=== PATIENT | male | born 1945 | race Caucasian/White ===

== ENCOUNTER 2021-06-17 12:50 | Outpatient (CLI) | payer OTHER, MEDICARE, SELFPAY ==
[2021-06-17 13:08] VITALS: BP 137/80; PULSE 87; RESP 18; TEMP 36.7; O2SAT 97
[2021-06-17 13:41] VITALS: BP 136/86; PULSE 88; O2SAT 95
[2021-06-17 14:51] VITALS: BP 148/87; PULSE 85; O2SAT 96
== END 2021-06-17 14:54 | disposition home or self-care (01) ==
PROVIDERS: PCP Internal Medicine; Visit Provider Internal Medicine
DX: U07.1 COVID-19 (principal)
CPT/HCPCS: 96365

== ENCOUNTER 2021-07-09 14:52 | Outpatient (CLI) | payer OTHER, MEDICARE, SELFPAY ==
--- NOTE | 2021-07-09 14:57 | XR_ITS ---
WS: [id number] RIGHT HIP HISTORY: RIGHT HIP PAIN COMPARISON: 03/07/2013 Right hip: Status post total hip arthroplasty. No lucency around the hardware. Hip prosthetic compone nt remains centered within the acetabular component. No asymmetry. Mild osteophytic ridging around the solomon acetabulum. XR/XR hip RT 2-3V wo/w pel* [id number] IMPRESSION: 1. No hip fracture. 2. Status post RIGHT hip arthroplasty. Arthroplasty components appear similarl y positioned as compared to 03/07/2013.
== END 2021-07-09 14:53 | disposition home or self-care (01) ==
PROVIDERS: PCP Internal Medicine; Visit Provider Internal Medicine
DX: M25.551 Pain in right hip (principal); Z96.641 Presence of right artificial hip joint
CPT/HCPCS: 73502

== ENCOUNTER 2022-02-14 09:51 | Emergency (ER) | payer OTHER, MEDICARE, SELFPAY ==
[2022-02-14] VITALS (7 sets, daily range): BP systolic 159–209; BP diastolic 85–141; PULSE 78–89; RESP 15–20; TEMP 36.6; O2SAT 94–96; BMI 34.7
--- NOTE | 2022-02-14 10:18 | PC.NURSE ---
PT PLACED ON CONTINUOUS CARDIAC, BP AND O2 MONITOR.
[2022-02-14] MEDS: lactated ringers 1,000 ML 999 ML IV (10:44)
[2022-02-14] MEDS: ondansetron 2 mg/ML SDV 2 mL 4 MG IVP ×2 (10:44→12:21)
[2022-02-14 10:57] LABS: Basophils % 0.3 %; Eosinophils # 0.2 10^3/uL (0.0-0.8); Eosinophils % 2.2 %; Hematocrit 46.9 % (42.0-52.0); Hemoglobin 14.8 g/dL (11.7-16.6); Lymphocytes # 1.7 10^3/uL (0.8-4.8); Lymphocytes % 19.3 %; Mean Corpuscular HGB Conc 31.6 g/dL (30.0-36.0); Mean Corpuscular Hemoglobin 28.5 pg (28.0-34.0); Mean Corpuscular Volume 90.2 fl (80-94); Mean Platelet Volume 9.6 fL (7.4-10.4); Monocytes # 0.5 10^3/uL (0.2-0.9); Neutrophils # 6.18 10^3/uL (1.8-7.7); Neutrophils % 71.6 %; Nucleated Red Blood Cells % 0 %; Platelet Count 265 10^3/cmm (130-400); Red Cell Distribution Width 14.6 % (12.1-15.1); White Blood Count 8.6 10^3/uL (4.0-10.0)
[2022-02-14 11:05] LABS: Alanine Aminotransferase 20 U/L (0-41); Albumin Level 4.2 g/dL (3.5-5.2); Alkaline Phosphatase 90 IU/L (40-130); Anion Gap 15.6 (5-19); Aspartate Amino Transferase 28 U/L (0-40); Blood Urea Nitrogen 16 mg/dL (8-23); Calcium 9.2 mg/dL (8.5-10.5); Carbon Dioxide 22 mmol/L (22-29); Chloride 98 mmol/L (98-107); Globulin 3.4 g/dL (1.3-4.6); Glucose 171 mg/dL (65-115); Osmolality Calculated 279 mOsm/kg (285-295); Potassium 3.6 mmol/L (3.5-5.1); Sodium 132 mmol/L (136-145); Total Bilirubin 0.7 mg/dL (0.15-1.2); Total Protein 7.6 g/dL (6.6-8.7)
[2022-02-14] MEDS: metoprolol tartrate 1 mg/1 mL SDV 5 mL 2.5 MG IVP (11:08)
[2022-02-14] MEDS: hyDRALAzine 20 mg/mL INJ 1 mL 10 MG IVP (11:08)
--- NOTE | 2022-02-14 11:19 | ECG_ITS ---
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 Measurements Intervals [place] Rate: 83 P: 1 NM: 248 QRS: 58 QRSD: 103 T: 56 QT: 393 QTc: 462 Interpretive Statements SINUS RHYTHM WITH FIRST DEGREE AV BLOCK POSSIBLE INFERIOR MYOCARDIAL INFARCTION , PROBABLY OLD [30 ms Q WAVE IN II/aVF] Compared to ECG 03/11/2016 05:19:25 Myocardial infarct finding now present T-wave abnormality no longer present Electronically Signed On 02-14-2022 11:33:50 CDT by Richard Lopez M.D. [id number]
--- NOTE | 2022-02-14 12:18 | CTR_ITS ---
PROCEDURE INFORMATION: Exam: CT Abdomen And Pelvis With Contrast Exam date and time: 02/14/2022 1:21 PM Age: 77 years old Clinical indication: Abdominal pain; Generalized; Prior surgery; Surgery type: Appy, gb hips; Additional info: Abd pain TECHNIQUE: Imaging protocol: Computed tomography of the abdomen and pelvis with contrast. Radiation optimization: All CT scans at this facility use at least one of these dose optimization techniques: automated exposure control; mA and/or kV adjustment per patient size (includes targeted exams where dose is matched to clinical indication); or iterative reconstruction. Contrast material: VISI 320; Contrast volume: 95 ml; Contrast route: INTRAVENOUS (IV); COMPARISON: CT Abdomen/Pelvis Renal [id number] 05/15/2019 8:57 AM RADIATION DOSE METRICS: Total DLP (mGy-cm): 1836.12 FINDINGS: Heart: Multivessel atherosclerotic disease which involves the coronary arteries. Diaphragm: Small hiatal hernia. Liver: Normal. No mass. Gallbladder and bile ducts: The gallbladder has been removed. Pancreas: There are calcifications in the pancreas consistent with chronic pancreatitis change. Spleen: Normal. No splenomegaly. Adrenal glands: Normal. No mass. Kidneys and ureters: Right kidney is atrophic. Stomach and bowel: There are air-fluid levels in the distal colon suggesting mild nonspecific colitis versus other diarrheal illness. There are multiple colonic diverticula. Associated mucosal thickening and mesenteric inflammatory stranding is present at the junction of the distal descending and sigmoid colon consistent with diverticulitis. No large abscess formation is seen. Appendix: No evidence of appendicitis. Intraperitoneal space: Unremarkable. No free air. No significant fluid collection. Vasculature: Unremarkable. No abdominal aortic aneurysm. Lymph nodes: Unremarkable. No enlarged lymph nodes. Urinary bladder: The bladder is enlarged and distended. The base of the bladder is obscured by artifact from the patient's hip replacements. Bladder measures 16.7 x 14.6 cm in the craniocaudad/transverse dimensions. Reproductive: Prostate region is obscured by artifact. Bones/joints: Patient status post bilateral total hip replacements. Resultant artifact obscures adjacent structures. Soft tissues: Unremarkable. CT/CT abdomen pelvis w con* [id number] IMPRESSION: 1. Findings consistent with acute diverticulitis. 2. The bladder enlarged and distended raising concern for bladder outlet obstruction. The base of the bladder is obscured by artifact from the bilateral total hip replacements. 3. There are air-fluid levels in the distal colon suggesting mild nonspecific colitis versus other diarrheal illness. 4. There are calcifications in the pancreas consistent with chronic pancreatitis change.
[2022-02-14] MEDS: morphine 4 mg/mL SDV 1 mL 6 MG IVP (12:22)
--- NOTE | 2022-02-14 13:03 | ED_ITS ---
HPI - Abdominal Pain General: Chief Complaint: Abdominal Pain Stated Complaint: n/v Time Seen by Provider: 02/14/22 09:52 Source: patient Mode of arrival: ambulatory Limitations: no limitations History of Present Illness: 77-year-old male presents emergency room complaining of upper abdominal pain of 10 that began yesterday morning nausea vomiting and diarrhea no hematochezia melena hematemesis or coffee-ground emesis. Not had any discomfort rating to the neck back or arms. No shortness of breath associated with it. No fever no cough MD elicited complaint: abdominal pain Onset (ago): day(s) (1) Location: Epigastric Severity: mild Quality: cramping Radiation: none Exacerbating factors: eating Relieving factors: nothing Associated Symptoms: Reports anorexia, bloating, change in stool character (Acholic stools), GI cramping, diarrhea, nausea, poor appetite and vomiting; Denies belching, change in bowel habits, chills, coffee ground emesis, constipation, dyspepsia, dysuria, excessive flatus, fever(s), heartburn, hematochezia, hematuria, hematemesis, fecal incontinence, loose stools, melena and syncope Review of Systems Const: Denies: fever(s) or chills ENMT: Denies: throat pain, ear or mastoid pain, nasal discharge or nasal co ngestion Card: Denies: syncope Resp: Denies: dyspnea, productive cough or non-productive cough GI: Reports: abdominal pain, nausea, vomiting, diarrhea, bloating, GI cramping and change in stool character (Acholic stools); Denies: hematemesis, coffee ground emesis, heartburn, constipation, belching, excessive flatus, fecal incontinence, change in bowel habits, hematochezia or melena : Denies: dysuria or hematuria Skin/Breast: Denies: rash or pruritus PFSH ED PFSH: Medical History (Updated 02/14/22 @ 15:09 by Quentin Britton DO) Chronic kidney disease Multifactorial. 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 Father , AT AGE 94-HYPERTENSION CAD (coronary artery disease) Social History Smoking and tobacco status: current every day smoker Alcohol intake: current Alcohol intake frequency: holidays/special occasions only Marital status: Current occupational status: employed History of recent travel: No Current gender identity: Male Physical Exam Const: COMMON NORMALS: no acute distress GENERAL APPEARANCE: cooperative and comfortable ORIENTATION/CONSCIOUSNESS: Yes awake, Yes oriented to person, Yes oriented to place and Yes oriented to time HENMT: COMMON NORMALS: normocephalic, atraumatic and hearing grossly normal bilaterally HEAD & SCALP: normocephalic and atraumatic Neck/C-Spine: COMMON NORMALS: no JVD Resp: COMMON NORMALS: normal respiratory effort, No retractions, No use of accessory muscles and clear to auscultation bilaterally AUSCULTATION: clear to auscultation bilaterally Cardio: COMMON NORMALS: no JVD, regular rate, regular rhythm and No murmurs present (Cardio) RATE: regular rate RHYTHM: regular rhythm GI: COMMON NORMALS: No hepatosplenomegaly present AUSCULTATION: Yes normoactive bowel sounds PALPATION: Yes Tenderness to palpation present (GI) (Epigastric), No Guarding due to palpation present (GI) and Yes No hepatosplenomegaly present Extremity: COMMON NORMALS: normal to inspection, capillary refill normal, no clubbing, cyanosis or edema, no calf tenderness and no pedal edema Neuro: SENSORIUM/ORIENTATION: Yes oriented to person, Yes oriented to place and Yes oriented to time Skin: COMMON NORMALS: no rashes or lesions noted GENERAL SKIN EXAM: no rashes or lesions noted Course Vital Signs: Vital signs: Vital Signs Temperature 97.8 F 02/14/22 09:55 Pulse Rate 78 02/14/22 13:41 Respiratory Rate 18 02/14/22 13:41 Blood Pressure 159/96 02/14/22 13:41 Pulse Oximetry 95 02/14/22 13:41 MDM - Abdominal Pain Medical Decision Making CT shows diverticulitis. Creatinine good he does have some urinary retention but he has self cath in the past. Encourage patient to self cath least once or twice a day. Start on Cipro and Flagyl he also has a mild UTI that should be co vladislav by those antibiotics clear liquid diet for 24 to 48 hours. Advance as tolerated give hydrocodone Zofran to use as needed Medical Records I reviewed the patient's medical records. Lab Data I reviewed the patient's lab results. : 02/14/22 10:13 02/14/22 10:13 Labs/Radiology: Radiology Impressions Abdomen/Pelvis CT 02/14/22 12:18 IMPRESSION: 1. Findings consistent with acute diverticulitis. 2. The bladder enlarged and distended raising concern for bladder outlet obstruction. The base of the bladder is obscured by artifact from the bilateral total hip replacements. 3. There are air-fluid levels in the distal colon suggesting mild nonspecific colitis versus other diarrheal illness. 4. There are calcifications in the pancreas consistent with chronic pancreatitis change. Laboratory Results WBC 8.6 10^3/uL (4.0-10.0) 02/14/22 10:13 RBC 5.20 10^6/uL (4.1-5.3) 02/14/22 10:13 Hgb 14.8 g/dL (11.7-16.6) 02/14/22 10:13 Hct 46.9 % (42.0-52.0) 02/14/22 10:13 MCV 90.2 fl (80-94) 02/14/22 10:13 MCH 28.5 pg (28.0-34.0) 02/14/22 10:13 MCHC 31.6 g/dL (30.0-36.0) 02/14/22 10:13 RDW 14.6 % (12.1-15.1) 02/14/22 10:13 Plt Count 265 10^3/cmm (130-400) 02/14/22 10:13 MPV 9.6 fL (7.4-10.4) 02/14/22 10:13 Neut % (Auto) 71.6 % 02/14/22 10:13 Lymph % (Auto) 19.3 % 02/14/22 10:13 [place] % (Auto) 6.0 % 02/14/22 10:13 Eos % (Auto) 2.2 % 02/14/22 10:13 Baso % (Auto) 0.3 % 02/14/22 10:13 Neut # (Auto) 6.18 10^3/uL (1.8-7.7) 02/14/22 10:13 Lymph # (Auto) 1.7 10^3/uL (0.8-4.8) 02/14/22 10:13 [place] # (Auto) 0.5 10^3/uL (0.2-0.9) 02/14/22 10:13 Eos # (Auto) 0.2 10^3/uL (0.0-0.8) 02/14/22 10:13 Baso # (Auto) 0.0 10^3/uL (0.0-0.1) 02/14/22 10:13 Nucleated RBC % (auto) 0 % 02/14/22 10:13 Nucleated RBCs # 0.0 /100WBC 02/14/22 10:13 Sodium 132 mmol/L (136-145) L 02/14/22 10:13 Potassium 3.6 mmol/L (3.5-5.1) 02/14/22 10:13 Chloride 98 mmol/L (98-107) 02/14/22 10:13 Carbon Dioxide 22 mmol/L (22-29) 02/14/22 10:13 Anion Gap 15.6 (5-19) 02/14/22 10:13 BUN 16 mg/dL (8-23) 02/14/22 10:13 Creatinine 1.3 mg/dL (0.7-1.2) H 02/14/22 10:13 GFR Calculation Not Reportable 02/14/22 10:13 Glucose 171 mg/dL (65-115) H 02/14/22 10:13 Calculated Osmolality 279 mOsm/kg (285-295) L 02/14/22 10:13 Calcium 9.2 mg/dL (8.5-10.5) 02/14/22 10:13 Total Bilirubin 0.7 mg/dL (0.15-1.2) 02/14/22 10:13 AST 28 U/L (0-40) 02/14/22 10:13 ALT 20 U/L (0-41) 02/14/22 10:13 Alkaline Phosphatase 90 IU/L (40-130) 02/14/22 10:13 Total Protein 7.6 g/dL (6.6-8.7) 02/14/22 10:13 Albumin 4.2 g/dL (3.5-5.2) 02/14/22 10:13 Globulin 3.4 g/dL (1.3-4.6) 02/14/22 10:13 Lipase 21 U/L (13-60) 02/14/22 10:13 Urine Color Yellow (Yellow) 02/14/22 12:51 Urine Appearance Hazy (CLEAR) A 02/14/22 12:51 Urine pH 5 (5-7) 02/14/22 12:51 Ur Specific [place] 1.015 (1.005-1.030) 02/14/22 12:51 Urine Protein Neg (Negative) 02/14/22 12:51 Urine Glucose (UA) Norm (Normal) 02/14/22 12:51 Urine Ketones Negative (Negative) 02/14/22 12:51 Urine Blood Trace (Negative) H 02/14/22 12:51 Urine Nitrate Positive (Negative) H 02/14/22 12:51 Urine Bilirubin Neg (Negative) 02/14/22 12:51 Urine Urobilinogen Norm mg/dL (Negative) 02/14/22 12:51 Ur Leukocyte Esterase 2+ (Negative) H 02/14/22 12:51 Urine RBC Rare /hpf (0-2) 02/14/22 12:51 Urine WBC 15-25 /hpf (0-5) H 02/14/22 12:51 Ur Squamous Epith Cells None /hpf (0-5) 02/14/22 12:51 Amorphous Sediment Not Reportable 02/14/22 12:51 Urine Bacteria 2+ /hpf (NONE) H 02/14/22 12:51 Urine Mucus Trace /hpf 02/14/22 12:51 Discharge Plan Discharge Patient Disposition: Home Clinical Impression: Diverticulitis, Urinary retention, Cystitis Condition: Stable Prescriptions: New metronidazole 500 mg tablet 500 mg PO TID Qty: 30 0RF Cipro 500 mg tablet 500 mg PO BID Qty: 20 0RF hydrocodone-acetaminophen 5-325 mg tablet 1 tab PO Q6H PRN (Reason: pain) Qty: 15 0RF ondansetron HCl 4 mg tablet 4 mg PO Q6H PRN (Reason: nausea and vomiting) Qty: 20 0RF No Action duloxetine [Cymbalta] 30 mg capsule,delayed release(DR/EC) 30 mg PO ONCE 0RF clopidogrel [Plavix] 75 mg tablet 75 mg PO ONCE 0RF tamsulosin [Flomax] 0.4 mg capsule 0.4 mg PO ONCE 0RF simvastatin 40 mg tablet 40 mg PO ONCE 0RF pantoprazole [Protonix] 40 mg tablet,delayed release (DR/EC) 40 mg PO ONCE 0RF multivitamin Capsule 1 cap PO QAM 0RF zolpidem 5 mg tablet 5 mg PO ONCE PRN0RF acetaminophen [Tylenol Extra Strength] 500 mg tablet 500 mg PO Q4H 0RF metoprolol succinate 25 mg tablet extended release 24 hr 25 mg PO ONCE 0RF cefuroxime axetil 500 mg tablet 500 mg PO BID Qty: 20 0RF amlodipine 2.5 mg tablet 2.5 mg PO DAILY Qty: 90 0RF Discharge Orders: Discharge ED (Routine); Ordered 02/14/22 Ordered By: Quentin Britton Referrals: Elizabeth Del Rio MD [Primary Care Provider] - Discharge Diet: Clear Liquid Discharge Activity: Resume usual activity Patient Instructions: Opioid Safety Coding Level of Care Code ED Sales Floor Manager for Chg Fwd Exam Comprehensive
[2022-02-14] MEDS: iodixanol 320 mg/mL 100mL Btl IV (13:20)
[2022-02-14 13:23] LABS: Lipase 21 U/L (13-60)
[2022-02-14 13:25] LABS: Add Urine Microscopic? YES; Bacteria Urine 2+ /hpf; Bilirubin Urine Neg (Negative); Blood Urine Trace (Negative); Glucose Urine UA Norm (Normal); Ketones Urine Negative (Negative); Leukocyte Esterase Urine 2+ (Negative); Nitrate Urine Positive (Negative); Protein Urine Neg (Negative); RBC Urine RARE /hpf (0-2); Specific Gravity, Urine 1.015 (1.005-1.030); Urine Appearance Hazy (CLEAR); Urine Color Yellow (Yellow); Urobilinogen Urine Norm (Negative); WBC Urine 15-25 /hpf (0-5); pH Urine 5 (5-7)
[2022-02-14 13:26] LABS: Add Urine Culture? Yes; Mucus Urine TRACE /hpf
[2022-02-14] MEDS: cefTRIAXone 1,000 MG in sodium chloride 0.9% (plus) 50 ML 100 MG IV (13:37)
--- NOTE | 2022-02-14 21:22 | PC.NURSE ---
Per physician order of 6mg of morphine; two 4mg vials were pulled from the Pyxis, 2mg were remaining from the 2nd vial. This RN went to waste medication in pyxis after patient was discharged home from the ED and pt was no longer in pyxis nor was there a discrepancy showing waste was needed. Leonard from Pharmacy was called. This RN was told to contact Endodontic Assistant. Maribel (Endodontic Assistant) called and informed of issue. cell efficiency supervisor stated she would contact Pharmacy. Approx. 15 minuntes later Leonard from Pharmacy arrives in ED, both this RN and Leonard reviewed the pyxis. Pt was added as a temporary patient into the pyxis to document waste of the remaining 2mg of morphine. Waste was witnessed by COLLEEN Abebe. Medical record number and visit number was provided in temporary Patient information so it could be correctly reviewed.
== END 2022-02-14 15:36 | disposition home or self-care (01) ==
PROVIDERS: Emergency Provider Family Medicine; PCP Internal Medicine
DX: K57.32 Diverticulitis of large intestine without perforation or abscess without bleeding (principal); R33.9 Retention of urine, unspecified; N30.90 Cystitis, unspecified without hematuria; Z79.02 Long term (current) use of antithrombotics/antiplatelets; F17.200 Nicotine dependence, unspecified, uncomplicated; N18.9 Chronic kidney disease, unspecified
CPT/HCPCS: 74177; 80053; 81001; 83690; 85025; 87077; 87086; 87186; 93005; 96365; 96375; 96376; 99284; J0360; J0696; J2270; J2405; J3490; Q9967

== ENCOUNTER 2022-06-18 00:21 | Emergency (ER) | payer OTHER, MEDICARE, SELFPAY ==
[2022-06-18 00:28] VITALS: BMI 33.2
[2022-06-18 00:32] VITALS: BP 139/88; PULSE 97; RESP 18; TEMP 36.4; O2SAT 97
--- NOTE | 2022-06-18 00:45 | ECG_ITS ---
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 Measurements Intervals [place] Rate: 96 P: TN: QRS: 65 QRSD: 109 T: 33 QT: 374 QTc: 474 Interpretive Statements Sinus RHYTHM with premature ventricular contractions and a long first-degree AV block PROBABLE INFERIOR MYOCARDIAL INFARCTION , PROBABLY OLD [35 ms Q WAVE IN II/aVF] Compared to ECG 02/14/2022 10:18:53 Myocardial infarct finding still present Electronically Signed On 06-18-2022 14:27:33 CDT by Richard Lopez M.D. [id number]
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
[2022-06-18 01:10] LABS: Basophils # 0.1 10^3/uL (0.0-0.1); Basophils % 0.4 %; Eosinophils # 0.2 10^3/uL (0.0-0.8); Eosinophils % 1.1 %; Hematocrit 48.4 % (42.0-52.0); Hemoglobin 16.3 g/dL (11.7-16.6); Lymphocytes # 1.8 10^3/uL (0.8-4.8); Lymphocytes % 11.4 %; Mean Corpuscular HGB Conc 33.7 g/dL (30.0-36.0); Mean Corpuscular Hemoglobin 31.2 pg (28.0-34.0); Mean Corpuscular Volume 92.7 fl (80-94); Mean Platelet Volume 10.3 fL (7.4-10.4); Monocytes # 0.7 10^3/uL (0.2-0.9); Monocytes % 4.2 %; Neutrophils # 12.82 10^3/uL (1.8-7.7); Neutrophils % 82.4 %; Nucleated Red Blood Cells % 0 %; Platelet Count 241 10^3/cmm (130-400); Red Blood Count 5.22 10^6/uL (4.1-5.3); White Blood Count 15.6 10^3/uL (4.0-10.0)
[2022-06-18 01:19] VITALS: RESP 22; O2SAT 93
[2022-06-18] MEDS: morphine 4 mg/mL SDV 1 mL IVP ×2 (01:19→03:17)
[2022-06-18] MEDS: ondansetron 2 mg/ML SDV 2 mL 4 MG IVP (01:20)
[2022-06-18 01:37] LABS: Alanine Aminotransferase 25 U/L (0-41); Albumin Level 4.7 g/dL (3.5-5.2); Alkaline Phosphatase 103 IU/L (40-130); Blood Urea Nitrogen 13 mg/dL (8-23); Calcium 9.9 mg/dL (8.5-10.5); Carbon Dioxide 21 mmol/L (22-29); Chloride 99 mmol/L (98-107); Globulin 3.2 g/dL (1.3-4.6); Glucose 169 mg/dL (65-115); Lipase 35 U/L (13-60); Osmolality Calculated 290 mOsm/kg (285-295); Sodium 138 mmol/L (136-145); Total Protein 7.9 g/dL (6.6-8.7)
[2022-06-18 01:44] LABS: Anion Gap 22.2 (5-19); Aspartate Amino Transferase 35 U/L (0-40); Potassium 4.2 mmol/L (3.5-5.1)
[2022-06-18] MEDS: iohexol 350 mg/mL 100 mL Btl IV (01:54)
[2022-06-18] MEDS: sodium chloride 0.9% 500 ML 999 ML IV (02:17)
[2022-06-18 03:05] LABS: Add Urine Culture? No; Add Urine Microscopic? YES; Amorphous Sediment Urine 2+ /hpf; Bacteria Urine TRACE /hpf; Bilirubin Urine Neg (Negative); Blood Urine Neg (Negative); Glucose Urine UA Norm (Normal); Ketones Urine 1+ (Negative); Leukocyte Esterase Urine Negative (Negative); Mucus Urine TRACE /hpf; Nitrate Urine Positive (Negative); Protein Urine Neg (Negative); RBC Urine 0-4 /hpf (0-2); Specific Gravity, Urine 1.015 (1.005-1.030); Squamous Epithelial Cell Urine 0-4 /hpf (0-5); Urine Appearance Clear (CLEAR); Urine Color Yellow (Yellow); Urobilinogen Urine Norm (Negative); pH Urine 5 (5-7)
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
[2022-06-18] MEDS: metoclopramide 5 mg/mL SDV 2 mL 10 MG IVP (03:14)
[2022-06-18 03:17] VITALS: RESP 16
[2022-06-18 03:23] VITALS: BP 205/80; PULSE 95; RESP 18; O2SAT 93
[2022-06-18 04:10] VITALS: RESP 18
[2022-06-18] MEDS: oxyCODONE 5 mg IR Tab/Cap PO (04:10)
--- NOTE | 2022-06-18 04:10 | PC.NURSE ---
Pt given oxycodone 5mg po x 1 tablet to go. Given to . Witnessed by COLLEEN Alvarenga.
--- NOTE | 2022-06-19 11:50 | DCPLANNER ---
Addendum entered by Rosana Hernandez 06/25/22 15:19: Patient has a follow up appointment scheduled for 06.23.22 with Maninder Carlos at ortho - patient did attend appointment. Original Note: manager of case management had message to schedule a follow up appointment for patient with ortho. manager of case management sent patients information to the front office staff at ortho. Patients information will be printed and reviewed. Clinic will call patient with appointment information.
== END 2022-06-18 04:12 | disposition home or self-care (01) ==
PROVIDERS: Emergency Medicine; Emergency Provider Physician Assistant; PCP Internal Medicine
DX: S22.080A Wedge compression fracture of T11-T12 vertebra, initial encounter for closed fracture (principal); Z79.02 Long term (current) use of antithrombotics/antiplatelets; Z96.643 Presence of artificial hip joint, bilateral; F17.210 Nicotine dependence, cigarettes, uncomplicated; V89.2XXA Person injured in unspecified motor-vehicle accident, traffic, initial encounter
CPT/HCPCS: 70450; 71045; 74177; 80053; 81001; 83690; 85025; 93005; 96361; 96374; 96375; 96376; 99285; J2270; J2405; J2765; J7040; Q9967

== ENCOUNTER → 2022-06-23 11:20 | Outpatient (BNVA) | payer OTHER, MEDICARE, SELFPAY | PROVIDERS: PCP Internal Medicine; Visit Provider Physician Assistant | DX: S22.080A Wedge compression fracture of T11-T12 vertebra, initial encounter for closed fracture (principal); S32.010A Wedge compression fracture of first lumbar vertebra, initial encounter for closed fracture; X58.XXXA Exposure to other specified factors, initial encounter; M48.061 Spinal stenosis, lumbar region without neurogenic claudication | CPT/HCPCS: 72100; 99203; 99204 ==

== ENCOUNTER 2022-06-25 11:53 | Outpatient (CLI) | payer OTHER, MEDICARE, SELFPAY ==
--- NOTE | 2022-06-25 12:00 | MR_ITS ---
WS: [id number] MRI LUMBAR SPINE NONCONTRAST TECHNIQUE: Sagittal T1, T2 and STIR imaging. Axial T1 and T2 imaging. CLINICAL INFORMATION: S32.010A - Wedge compression fracture of first lumbar nasima... COMPARISON: CT abdomen pelvis June 18, 2022 FINDINGS: Mild lumbar curve. Compression fracture L1 vertebral body with diffuse edema consistent with acute co mpression injury endplate. Fracture cleft along the inferior endplate slightly progressed compared to June 18, 2022 CT abdomen pelvis. Loss of approximately 40% vertebral body height centrally. Mild r etropulsion posterior inferior cortex with mild to moderate central canal stenosis and slight crowdin g of the cauda equina nerve rootlets. No other acute appearing compression fractures. T12-L1: Mild disc bulging with slight effacement of ventral thecal sac. Mild facet arthropathy. Spina l canal and foramen are patent. L1-L2: Mild/moderate central canal stenosis. Crowding of the cauda equina nerve roots. Mild facet art hropathy. Mild LEFT proximal foraminal narrowing. L2-L3: Slight retrolisthesis. Mild annular bulging with moderate central canal stenosis. Impingement traversing L3 nerve roots. Small LEFT subarticular protrusion impinges the traversing LEFT L3 nerve r oot. Mild LEFT and no significant RIGHT foraminal narrowing. Mild facet arthropathy. L3-L4: Mild annular bulging. Impingement traversing L4 nerve roots bilaterally. Moderate central [place] l stenosis. Moderate facet arthropathy. Eccentric disc bulging with mild bilateral foraminal narrowin g. L4-L5: Mild annular bulging. Slight effacement of ventral thecal sac. Impingement traversing RIGHT gr eater than LEFT L5 nerve roots. Mild RIGHT foraminal narrowing. Mild facet arthropathy. L5-S1: Mild disc bulging with slight effacement of ventral thecal sac. Slight retrolisthesis. Impinge ment traversing S1 nerve roots bilaterally. Moderate facet arthropathy ligamentum flavum hypertrophy. Osteophytic ridging with moderate bilateral foraminal narrowing. Atrophic RIGHT kidney.Urine distended bladder. MR/MR lumbar spine wo con* [id number] IMPRESSION: 1. Acute compression fracture L1 vertebral body with compression of the inferi or endplate measuring approximately 40%. Mild retropulsion of the posterior inf erior cortex with mild to moderate central canal stenosis and mild crowding of the cauda equina nerve rootlets. 2. No other acute compression fractures. 3. Moderate central canal stenosis L2-L3 L3-L4 due to disc bulging with facet arthropathy and ligamentum flavum hypertrophy. 4. Small LEFT subarticular protrusion impinges the traversing LEFT L3 nerve ro ot. 5. Impingement RIGHT subarticular recess L4-L5. 6. Impingement traversing S1 nerve roots L5-S1. Moderate bilateral L5-S1 kevin inal narrowing.
== END 2022-06-25 11:54 | disposition home or self-care (01) ==
LOC: RAD 11:56
PROVIDERS: PCP Internal Medicine; Visit Provider Physician Assistant
DX: S32.010A Wedge compression fracture of first lumbar vertebra, initial encounter for closed fracture (principal); M48.061 Spinal stenosis, lumbar region without neurogenic claudication; M51.26 Other intervertebral disc displacement, lumbar region; X58.XXXA Exposure to other specified factors, initial encounter; V89.2XXA Person injured in unspecified motor-vehicle accident, traffic, initial encounter
CPT/HCPCS: 72148; 99214

== ENCOUNTER 2022-06-26 05:37 | Day surgery (SDC) | payer OTHER, MEDICARE, SELFPAY ==
[2022-06-26] VITALS (7 sets, daily range): BP systolic 117–165; BP diastolic 71–103; PULSE 75–100; RESP 14–20; TEMP 36.2–36.6; O2SAT 95–99; BMI 33.2
--- NOTE | 2022-06-26 | SCC_ITS ---
Procedure: 1. L1 Kyphoplasty 81.4 seconds of fluoroscopic guidance, for a cumulative dose of 64.41 mGy, was provided to Dr. Bennett by the radiology department. C-arm images of the lumbar spine were saved for the patient's permanent record. [facility]
--- NOTE | 2022-06-26 05:50 | SC_ITS ---
WS: [id number] C-arm FL for Kyphoplasty REASON FOR EXAM: L1 kyphoplasty FINDINGS: Injection of radiopaque methylmethacrylate into the central and anterior L4 vertebral body from the l eft pedicle approach. There is some extravasation of methylmethacrylate into the paravertebral soft t issues bilaterally. The injected methylmethacrylate fills the fracture line. SC/C-arm FL for Kyphoplasty IMPRESSION: L1 vertebral plasty as above.
--- NOTE | 2022-06-26 06:31 | W.PM.OPSUD ---
Surgery/Procedure H&P Update DATE OF PROCEDURE: June 26, 2022 DATE H&P PERFORMED: 06/25/22 H&P UPDATE INFORMATION: I have reviewed H&P completed within last 30 days, I have examined patient prior to procedure and No changes to prior documentation PREOP DIAGNOSIS: Traumatic L1 compression fracture PLANNED PROCEDURE: Operation Date: 06/26/22 07:00 Proposed Procedures p Kyphoplasty L1(Not Applicable) - Daniel Bennett, DO
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
[2022-06-26] MEDS: sodium chloride 0.9% 1,000 ML 30 ML IV (06:43)
[2022-06-26] MEDS: ceFAZolin 2,000 MG in sodium chloride 0.9% (plus) 50 ML 100 MG IV (07:00)
[2022-06-26] MEDS: iohexol 300 mg/mL 50 mL Btl (OR ONLY) XX (07:30)
--- NOTE | 2022-06-26 08:15 | P.OP_ITS ---
Operative Report Date of procedure: June 26, 2022 Pre-op diagnosis: Preop Diagnosis Traumatic L1 osteoporotic wedge compression fracture Post-op diagnosis: same Procedure done: 1. L1 Kyphoplasty Surgeon: Daniel Bennett Estimated blood loss (mL): 5 Procedure: 1. L1 Kyphoplasty Patient was brought to the operative suite after undergoing anesthesia patient was placed in prone position. Biplanar fluoroscopy was brought in. AP lateral fluoroscopy was used to identify the L1 level. All areas impingement well- padded. Patient was prepped and draped in sterile fashion. Skin incision was made at the superior lateral aspect of the L1 pedicle on the left side. Skin incision made. The Jamshidi needle was inserted into the L1 pedicle. A drill was then inserted to the center position of the vertebral body anteriorly. Then the balloon was inflated. And then cement was placed into the void that was created by the balloon. This helped to stabilize the fracture. AP lateral fluoroscopy ensured that the fracture the cement were all in good position. Wounds irrigated closed with nylon suture.
[2022-06-26] MEDS: HYDROcodone-acetaminophen 5-325 mg Tablet 1 TAB PO (08:53)
--- NOTE | 2022-06-26 14:16 | ANE.PACU2 ---
Inpatient post-anesthesia follow up: Airway intact: Yes Vital signs: Temperature 97.3 F Pulse Rate 97 Respiratory Rate 18 Blood Pressure 117/73 Pulse Oximetry 95 Oxygen Delivery Me thod Room Air Oxygen Flow Rate 6 Fraction of Inspir ed Oxygen Hydration adequate: Yes Nausea and vomiting: No Pain level: 1 Mental status: Baseline
== END 2022-06-26 09:10 | disposition home or self-care (01) ==
PROVIDERS: PCP Internal Medicine; Visit Provider Orthopaedic Surgery
PROC: (CPT 22514; principal; 2022-06-26 07:00)
DX: S32.010A Wedge compression fracture of first lumbar vertebra, initial encounter for closed fracture (principal); X58.XXXA Exposure to other specified factors, initial encounter; I25.10 Atherosclerotic heart disease of native coronary artery without angina pectoris; Z95.5 Presence of coronary angioplasty implant and graft; Z79.02 Long term (current) use of antithrombotics/antiplatelets; K21.9 Gastro-esophageal reflux disease without esophagitis; E78.5 Hyperlipidemia, unspecified; I12.9 Hypertensive chronic kidney disease with stage 1 through stage 4 chronic kidney disease, or unspecified chronic kidney disease; N18.9 Chronic kidney disease, unspecified
CPT/HCPCS: 22514; 76000; J0330; J2370; J2704; J3010; J3490; J7030; P9041

== ENCOUNTER → 2022-07-07 08:48 | Outpatient (BNVA) | payer OTHER, MEDICARE, SELFPAY | PROVIDERS: PCP Internal Medicine; Visit Provider Orthopaedic Surgery | DX: S32.010D Wedge compression fracture of first lumbar vertebra, subsequent encounter for fracture with routine healing (principal); M25.552 Pain in left hip; X58.XXXD Exposure to other specified factors, subsequent encounter; Z96.643 Presence of artificial hip joint, bilateral | CPT/HCPCS: 72100; 73502; 99024 ==

== ENCOUNTER 2022-07-10 11:13 | Outpatient (CLI) | payer OTHER, MEDICARE, SELFPAY ==
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
== END 2022-07-10 11:14 | disposition home or self-care (01) ==
PROVIDERS: PCP Internal Medicine; Visit Provider Orthopaedic Surgery
DX: M25.552 Pain in left hip (principal); V89.2XXA Person injured in unspecified motor-vehicle accident, traffic, initial encounter
CPT/HCPCS: 73700

== ENCOUNTER → 2022-07-29 09:57 | Outpatient (BNVA) | payer MEDICARE, OTHER, SELFPAY | PROVIDERS: PCP Internal Medicine; Visit Provider Anesthesiology Pain Medicine | DX: M54.50 Low back pain, unspecified (principal); M79.604 Pain in right leg; M79.605 Pain in left leg; F17.290 Nicotine dependence, other tobacco product, uncomplicated | CPT/HCPCS: 99204; 99205 ==

== ENCOUNTER 2022-08-18 10:54 | Outpatient (RCR) | payer MEDICARE, OTHER, SELFPAY | END 2022-09-14 23:59 | disposition home or self-care (01) | LOC: SPT 10:54 | PROVIDERS: PCP Internal Medicine; Visit Provider Anesthesiology Pain Medicine | DX: M54.50 Low back pain, unspecified (principal); G89.29 Other chronic pain | CPT/HCPCS: 97110; 97162 ==

== ENCOUNTER 2025-11-11 18:43 | Inpatient (IN) | payer MEDICARE, OTHER, SELFPAY ==
[2025-11-11] VITALS (18 sets, daily range): BP systolic 158–195; BP diastolic 94–112; PULSE 76; RESP 22; TEMP 35.6; O2SAT 81–100; BMI 29.0
--- OUTSIDE RECORDS SUMMARY | 2025-11-11 18:48 | XMS_ITS | Encounter Summary ---
Author Organization [facility], [facility] Address [address] [place] [address] Phone Care Team Providers Care Auto Body Repairman Name Role Phone Elizabeth Del Rio MD Primary Care Provider [phone] Encounter Details Date Type Department Care Team (Late st Contact Info) Description 05/12/2019 Orders Only [facility] [address] [place] [address] Chronic kidney disease, stage 3 (moderate); Hypertension Social History Tobacco Use Types Packs/Day Years Used Date Smoking Tobacco: Never Assessed Sex and Gender Information Value Date Recorded Sex Assigned at Not on file Legal Sex Male 12:33 PM EDT Gender Identity Not on file Sexual Orientation Not on file documented as of this encounter Plan of Treatment Not on file documented as of this encounter Visit Diagnoses Diagnosis Chronic kidney disease, stage 3 (moderate) Hypertension documented in this encounter Care Teams Auto Body Repairman Relationship Specialty Start Date End Date Elizabeth Del Rio MD [address] [place] [address] PCP - General Internal Medicine 06/16/19 documented as of this encounter
--- OUTSIDE RECORDS SUMMARY | 2025-11-11 18:48 | XMS_ITS | Clinical Summary ---
Author Organization [facility] Facility Address [address] [address] Care Team Providers Care Restaurant Line Server Name Role Phone Elizabeth Del Rio MD Primary Care Provider [phone] Allergies No known active allergies Medications pantoprazole (PROTONIX) 40 MG EC tablet Take 40 mg by mouth 1 (one) time each day Do not crush, chew, or split. Active DULoxetine (CYMBALTA) [address] capsule Take 30 mg by mouth 1 (one) time each day Do not crush or chew. Active clopidogrel (PLAVIX) 75 MG tablet Take 75 mg by mouth 1 (one) time each day Active metoprolol succinate XL (TOPROL-XL) 25 MG 24 hr tablet Take 50 mg by mouth 1 (one) time each day Do not crush or chew. Active tamsulosin (FLOMAX) 0.4 MG 24 hr capsule Take 0.8 mg by mouth 1 (one) time each day Active amLODIPine (NORVASC) 2.5 MG tablet Take 10 mg by mouth 1 (one) time each day Active Multiple Vitamin (multivitamin) tablet Take 1 tablet by mouth 1 (one) time each day Active acetaminophen (TYLENOL) 500 MG tablet Take by mouth every 6 (six) hours if needed for mild pain Active hydrOXYzine (VISTARIL) 50 MG capsule Take 50 mg by mouth Prn ONLY 09/15/2023 Active ezetimibe (ZETIA) 10 MG tablet Take 10 mg by mouth 1 (one) time each day Active Melatonin 10 MG capsule Take by mouth Active Active Problems Problem Noted Date Diagnosed Date Vitamin D deficiency 08/26/2022 Stage 3b chronic kidney disease 10/22/2020 Overview (11/18/2020): Update for Diagnosis Load Essential (primary) hypertension 10/22/2020 Retention of urine 10/22/2020 Family History Medical History Relation Comments Heart disease Father Hypertension Father Cancer Mother Heart disease Mother Hypertension Mother Heart disease Sibling Hypertension Sibling Relation Status Comments Father Mother Sibling Social History Tobacco Use Types Packs/Day Years Used Date Smoking Tobacco: Some Days Cigars Smokeless Tobacco: Never Tobacco Cessation:Ready to Q uit: Not Asked; Counseling Given: Not Answered Alcohol Use Standard Drinks/Week Comments Yes 0 (1 standard drink = 0.6 oz pur e alcohol) Sex and Gender Information Value Date Recorded Sex Assigned at Not on file Legal Sex Male 12:33 PM EDT Gender Identity Not on file Sexual Orientation Not on file Last Filed Vital Signs Vital Sign Reading Time Taken Comments Blood Pressure 142/80 12/12/2024 2:27 PM USED CAR SALES MANAGER Pulse 90 12/12/2024 2:27 PM USED CAR SALES MANAGER Temperature 36.2 C (97.1 F) 10/22/2020 9:09 AM USED CAR SALES MANAGER Respiratory Rate - - Oxygen Saturation 98% 12/12/2024 2:27 PM USED CAR SALES MANAGER Inhaled Oxygen Concentration - - Weight 87.3 kg (192 lb 6.4 oz) 12/12/2024 2:27 P M USED CAR SALES MANAGER Height 177.8 cm (5' 10 ) 12/12/2024 2:27 PM USED CAR SALES MANAGER Body Mass Index 27.61 12/12/2024 2:27 PM USED CAR SALES MANAGER Plan of Treatment Health Maintenance Due Date Last Done Comments Pneumococcal Vaccine: 50+ Ye ars (1 of 2 - PCV) 01/20/1964 Influenza Vaccine (#1) 2025 Hepatitis B Vaccine Aged Out No longe r eligible based on patient's age to complete this topic Insurance Medicare Care Teams Restaurant Line Server Relationship Specialty Start Date End Date Elizabeth Del Rio MD [address] [place] [address] PCP - General Internal Medicine 06/16/19
--- OUTSIDE RECORDS SUMMARY | 2025-11-11 18:48 | XMS_ITS | Encounter Summary ---
Author Organization [facility], [facility] Address [address] [place] [address] Phone Care Team Providers Care Workplace Trainer And Assessor Name Role Phone Elizabeth Del Rio MD Primary Care Provider [phone] Encounter Details Date Type Department Care Team (Late st Contact Info) Description 11/13/2019 Orders Only [facility] [address] [place] [address] Sacha Castañeda MD Chronic kidney disease stage 3 (HCC) Social History Tobacco Use Types Packs/Day Years Used Date Smoking Tobacco: Some Days Cigarettes Cigars Smokeless Tobacco: Never Alcohol Use Standard Drinks/Week Comments Yes 0 [...] this encounter Visit Diagnoses Diagnosis Chronic kidney disease stage 3 (HCC) documented in this encounter Care Teams Workplace Trainer And Assessor Relationship Specialty Start Date End Date Elizabeth Del Rio MD [address] [place] [address] PCP - General Internal Medicine 06/16/19 documented as of this encounter
[2025-11-11 19:01] LABS: Hematocrit 52.7 % (37-53); Hemoglobin 18.20 g/dL (11.27-16.99); Mean Corpuscular HGB Conc 34.5 g/dL (30-55); Mean Corpuscular Hemoglobin 34.6 pg (27-33); Mean Corpuscular Volume 100.2 fl (82-101); Nucleated Red Blood Cells % 0 %; Platelet Count 245 10^3/cmm (157-399); Red Blood Count 5.26 10^6/uL (3.85-5.65); White Blood Count 13.95 10^3/uL (3.29-11.43)
--- NOTE | 2025-11-11 19:16 | ECG_ITS ---
[employer] Test Date: 2025-11-11 Pat Name: Bartolo Guzmán Department: Room: Gender: Male Clinical Sales Consultant: : 1945 Requested By: Lexy Beal Order Number: [id number] Reading MD: RICHY BUCHANAN Measurements Intervals [place] Rate: 76 P: 93 [place]: 297 QRS: -77 QRSD: 120 T: 85 QT: 416 QTc: 470 Interpretive Statements SINUS RHYTHM WITH SINUS ARRHYTHMIA WITH FIRST DEGREE AV BLOCK RIGHT BUNDLE BRANCH BLOCK [120+ ms QRS DURATION, UPRIGHT V1, 40+ ms S IN I/aVL/V4/V5/V6] POSSIBLE ANTERIOR MYOCARDIAL INFARCTION , PROBABLY OLD [30 ms Q WAVE IN V3/V4, OR R < 0.2 mV IN V4] INFERIOR MYOCARDIAL INFARCTION , OF INDETERMINATE AGE [40+ ms Q WAVE AND/OR ST/T ABNORMALITY IN II/aVF] Compared to ECG 06/18/2022 00:53:30 First degree AV block now present Right bundle-branch block now present Ventricular premature complex(es) no longer present Myocardial infarct finding still present Electronically Signed On 11-11-2025 22:50:05 SHAFTING CLEANER by RICHY BUCHANAN [email or web address] [id number]
[2025-11-11 19:21] LABS: Troponin(5th) Baseline 18 ng/L (0-15)
[2025-11-11 19:31] LABS: Lactic Sepsis W/Reflex 6.4 mmol/L (0.5-2.2)
[2025-11-11 19:36] LABS: Alanine Aminotransferase 53 U/L (0-41); Albumin Level 4.9 g/dL (3.5-5.2); Alkaline Phosphatase 130 U/L (40-130); Anion Gap 29.9 (5-19); Aspartate Amino Transferase 81 U/L (0-40); Blood Urea Nitrogen 15 mg/dL (8-23); Calcium 10.5 mg/dL (8.5-10.5); Carbon Dioxide 20 mmol/L (22-29); Chloride 95 mmol/L (98-107); Globulin 2.9 g/dL (1.3-4.6); Glucose 147 mg/dL (65-115); Osmolality Calculated 296 mOsm/kg (285-295); Potassium 3.9 mmol/L (3.5-5.1); Sodium 141 mmol/L (136-145); Total Protein 7.8 g/dL (6.6-8.7)
[2025-11-11 19:42] LABS: Respiratory Syncytial Virus Ce NEGATIVE (Negative); SARS-CoV-2 PCR NEGATIVE (Negative)
--- NOTE | 2025-11-11 19:43 | CTR_ITS ---
PROCEDURE INFORMATION: Exam: CTA Abdomen and Pelvis With Contrast Exam date and time: 11/11/2025 8:29 PM Age: 80 years old Clinical indication: Other: Hematemesis; Abdominal pain; Generalized; Prior surgery; Surgery date: 6+ months; Surgery type: Gb. Turp. Appy. Vasectomy. Bilat leonid. Kyphoplasty. Diffuse abd pain with hematemsis; Additional info: N/v/abd pain, lactic 6.4 TECHNIQUE: Imaging protocol: Computed tomographic angiography of the abdomen and pelvis with contrast. Exam focused on the arteries. 3D rendering (Not supervised by radiologist): MIP and/or 3D reconstructed images were created by the technologist. Radiation optimization: All CT scans at this facility use at least one of these dose optimization techniques: automated exposure control; mA and/or kV adjustment per patient size (includes targeted exams where dose is matched to clinical indication); or iterative reconstruction. Contrast material: OMNI 350; Contrast volume: 100 ml; Contrast route: INTRAVENOUS (IV); COMPARISON: CT abdomen pelvis w con* [id number] 06/18/2022 1:41 AM RADIATION DOSE METRICS: Total DLP (mGy-cm): 1452.46 FINDINGS: Diaphragm: Small hiatal hernia. Aorta: No aortic aneurysm. No aortic dissection. Mild atherosclerosis. Celiac and mesenteric arteries: No occlusion or significant stenosis. Renal arteries: No occlusion or significant stenosis. Right iliac arteries: No occlusion or significant stenosis. Left iliac arteries: No occlusion or significant stenosis. Liver: No mass. Gallbladder and biliary ducts: The gallbladder is surgically absent. Pancreas: Unremarkable. No mass. No ductal dilation. Spleen: Unremarkable. No splenomegaly. Adrenal glands: Unremarkable. No mass. Kidneys and ureters: Right renal atrophy. Stomach and bowel: Colonic diverticulosis. Distal colonic anastomotic changes. Appendix: No evidence of appendicitis. Intraperitoneal space: Unremarkable. No free air. No significant fluid collection. Lymph nodes: Unremarkable. No enlarged lymph nodes. Urinary bladder: The urinary bladder is distended. Reproductive: Mild prostatomegaly. Bones/joints: Degenerative visualized spine changes and vertebral augmentation changes at L1. Total hip arthroplasty changes. Soft tissues: Small fat containing left-sided inguinal hernia. CT/CT angio abdomen pelvis [id number] IMPRESSION: 1. No areas of gross contrast extravasation to suggest an acute GI bleed at this time. 2. Mild abdominal aorta atherosclerosis without evidence of aneurysm or dissection. 3. Additional incidental and chronic findings as above.
--- NOTE | 2025-11-11 19:43 | W.ED.GENADLT ---
HPI - General Adult General: Chief complaint: General Medical Stated complaint: n/v History of Present Illness: Patient is an 80-year-old male with a history of high blood pressure, CKD and obstructive uropathy secondary to neurogenic bladder, high cholesterol presents with a chief complaint of upper abdomen pain, nausea, vomiting for 1 day. Patient states his upper abdomen hurts from vomiting so much. Patient denies fever at home. He states that he is not having chest pain today. He does not feel short of breath and has not had a cough. Patient does not feel dizzy or lightheaded. He has had nausea and vomiting today but normal bowel movement this morning. Patient denies blood in stool. Patient states that he has been going more frequently but has not urinated much because he accidentally threw away his Flomax 4 days ago. No sick contacts. He feels much better after dose of Phenergan. Related Data Home Medications ?Medication ?Instructions ?Recorded ?Confirmed acetaminophen 500 mg tablet 500 mg PO Q4H 11/16/19 07/29/22 (Tylenol Extra Strength) clopidogrel 75 mg tablet (Plavix) 75 mg PO ONCE 11/16/19 07/29/22 duloxetine 30 mg capsule,delayed 30 mg PO ONCE 11/16/19 07/29/22 release (Cymbalta) multivitamin 1 cap PO QAM 11/16/19 07/29/22 pantoprazole 40 mg tablet,delayed 40 mg PO ONCE 11/16/19 07/29/22 release (Protonix) simvastatin 40 mg tablet 40 mg PO ONCE 11/16/19 07/29/22 tamsulosin 0.4 mg capsule (Flomax) 0.4 mg PO ONCE 11/16/19 07/29/22 metoprolol succinate 25 mg 25 mg PO ONCE 05/16/20 07/29/22 tablet,extended release 24 hr baclofen 10 mg tablet 10 mg PO BID 07/29/22 07/29/22 Previous Rx's ?Medication ?Instructions ?Recorded amlodipine 2.5 mg tablet 2.5 mg PO DAILY #90 tabs 03/24/21 metronidazole 500 mg tablet 500 mg PO TID #30 tabs 02/14/22 ondansetron HCl 4 mg tablet 4 mg PO Q6H PRN nausea and 02/14/22 vomiting #20 tabs TLSO brace #1 ea 06/23/22 prednisone 20 mg tablet 20 mg PO DAILY #15 tabs 07/17/22 tramadol 50 mg tablet 50 mg PO Q4H PRN pain 7 days #30 07/21/22 tabs Allergies Allergy/AdvReac Type Severity Reaction Status Date / Time No Known Allergies Allergy Verified 07/29/22 10:09 [facility] PFSH: Medical History (Updated 11/11/25 @ 21:52 by Lexy Beal MD) Chronic kidney disease Multifactorial. Obstructive uropathy component secondary to neurogenic bladder Hydronephrosis Secondary to chronic urinary retention Urinary retention 2000 cc with no sensation of fullness at diagnosis 2018 Surgical History Status post tonsillectomy and adenoidectomy Status post vasectomy Status post appendectomy Status post bilateral hip replacements Status post transurethral resection of prostate Status post cholecystectomy Family History Mother , AT AGE 65-ND No problems noted. Father , AT AGE 94-HYPERTENSION CAD (coronary artery disease) Social History Smoking and tobacco/nicotine status: current some day tobacco/nicotine user (cigars) Alcohol intake: current Alcohol intake frequency: holidays/special occasions only Marital status: Current occupational status: employed Current gender identity: Male Physical Exam Narrative: EXAM NARRATIVE: Vital signs were reviewed. Patient is alert and oriented and answering orientation questions readily. Patient is breathing comfortably, no increased WOB or accessory muscle use. SpO2 is above 95% on RA. Patient has clear lungs b/l, no rhonchi, wheezing or crackles. No hypotension or tachycardia. Abdomen is soft, nondistended and nontender. Patient is moving all extremities, no deformity or gross injury. No lower extremity edema or asymmetry. Course Vital Signs: Vital signs: Vital Signs Temperature 96.1 F L 11/11/25 18:55 Pulse Rate 76 11/11/25 18:55 Respiratory Rate 22 H 11/11/25 18:55 Blood Pressure 181/103 11/11/25 21:30 Pulse Oximetry 93 11/11/25 21:30 Oxygen Delivery Me thod Room Air 11/11/25 18:55 [facility] - General Adult Medical Decision Making Patient is an 80-year-old male with a past medical history of high blood pressure, CKD, neurogenic bladder presents with a chief complaint of upper abdomen pain, nausea, vomiting and not having his tamsulosin for 4 days. No sick contacts. Differential diagnosis includes, but is not limited to, pancreatitis, gastroenteritis, urinary tract infection, pyelonephritis, nephrolithiasis, obstructive uropathy, SBO, diverticulitis, mesenteric ischemia, ACS, other. On initial exam, patient is hemodynamically stable and nontoxic appearing. Patient was evaluated with CBC, CMP, lipase, UA, troponin, EKG and CT abd/pelvis. Patient was treated w/IV fluids. Patient has an elevated WBC of 14, elevated H/H (could be due to hemoconcentration due to n/v). Cr is at baseline but AG is 30. Normal potassium/sodium. Lactic acid is 6.4; blood cultures added. Negative for flu/covid/rsv. Patient's troponin is mildly elevated, no chest pain at this time. Patient has a negative delta troponin. On reassessment, patient again complains of abdominal pain, was treated with IV morphine and Zofran. CT scan of the abdomen shows: IMPRESSION: 1. No areas of gross contrast extravasation to suggest an acute GI bleed at this time. 2. Mild abdominal aorta atherosclerosis without evidence of aneurysm or dissection. 3. Additional incidental and chronic findings as above. FC placed, patient given flomax that he has been out of. Additionally, he was treated w/IV labetalol for HTN. Could be that metabolic acidosis is 2/2 to fluid losses and dehydration; will admit for further treatment and obsevation. Lab Data 11/11/25 18:30 11/11/25 18:30 Radiology Impressions Abdomen/Pelvis CTA 11/11/25 19:43 IMPRESSION: 1. No areas of gross contrast extravasation to suggest an acute GI bleed at this time. 2. Mild abdominal aorta atherosclerosis without evidence of aneurysm or dissection. 3. Additional incidental and chronic findings as above. Laboratory Results WBC 13.95 10^3/uL (3.29-11.43) H 11/11/25 18:30 RBC 5.26 10^6/uL (3.85-5.65) 11/11/25 18:30 Hgb 18.20 g/dL (11.27-16.99) H 11/11/25 18:30 Hct 52.7 % (37-53) 11/11/25 18:30 MCV 100.2 fl (82-101) 11/11/25 18:30 MCH 34.6 pg (27-33) H 11/11/25 18:30 MCHC 34.5 g/dL (30-55) 11/11/25 18:30 RDW 12.5 % (12.1-15.1) 11/11/25 18:30 Plt Count 245 10^3/cmm (157-399) 11/11/25 18:30 MPV 10.6 fL (7.4-10.4) H 11/11/25 18:30 Neut % (Auto) 68.8 % 11/11/25 18:30 Lymph % (Auto) 24.2 % 11/11/25 18:30 [place] % (Auto) 5.7 % 11/11/25 18:30 Eos % (Auto) 0.4 % 11/11/25 18: Baso % (Auto) 0.6 % 11/11/25 18:30 Neut # (Auto) 9.61 10^3/uL (1.8-7.7) H 11/11/25 18:30 Lymph # (Auto) 3.4 10^3/uL (0.8-4.8) 11/11/25 18:30 [place] # (Auto) 0.8 10^3/uL (0.2-0.9) 11/11/25 18:30 Eos # (Auto) 0.1 10^3/uL (0.0-0.8) 11/11/25 18:30 Baso # (Auto) 0.1 10^3/uL (0.0-0.1) 11/11/25 18:30 Nucleated RBC % (auto) 0 % 11/11/25 18:30 Nucleated RBCs # 0.0 /100WBC 11/11/25 18:30 Sodium 141 mmol/L (136-145) 11/11/25 18:30 Potassium 3.9 mmol/L (3.5-5.1) 11/11/25 18:30 Chloride 95 mmol/L (98-107) L 11/11/25 18:30 Carbon Dioxide 20 mmol/L (22-29) L 11/11/25 18:30 Anion Gap 29.9 (5-19) H 11/11/25 18:30 BUN 15 mg/dL (8-23) 11/11/25 18:30 Creatinine 1.3 mg/dL (0.7-1.2) H 11/11/25 18:30 GFR Calculation Not Reportable 11/11/25 18:30 Glucose 147 mg/dL (65-115) H 11/11/25 18:30 Calculated Osmolality 296 mOsm/kg (285-295) H 11/11/25 18:30 Lactic Acid 6.4 mmol/L (0.5-2.2) H* 11/11/25 18:30 Calcium 10.5 mg/dL (8.5-10.5) 11/11/25 18:30 Total Bilirubin 1.2 mg/dL (0.15-1.2) 11/11/25 18:30 AST 81 U/L (0-40) H 11/11/25 18:30 ALT 53 U/L (0-41) H 11/11/25 18:30 Alkaline Phosphatase 130 U/L (40-130) 11/11/25 18:30 Troponin T Baseline 18 ng/L (0-15) H 11/11/25 18:30 Troponin T 60 Minute 15.83 ng/L (0-15) H 11/11/25 19:27 Delta Troponin T -2.17 ABS# (0-10) L 11/11/25 19:27 Total Protein 7.8 g/dL (6.6-8.7) 11/11/25 18:30 Albumin 4.9 g/dL (3.5-5.2) 11/11/25 18:30 Globulin 2.9 g/dL (1.3-4.6) 11/11/25 18:30 Amorphous Sediment Not Reportable 11/11/25 21:11 Influenza A (PCR) Negative (Negative) 11/11/25 19:02 Influenza Type B (PCR) Negative (Negative) 11/11/25 19:02 RSV (PCR) Negative (Negative) 11/11/25 19:02 SARS-CoV-2 (PCR) Negative (Negative) 11/11/25 19:02 All radiology interpretation(s) finalized by discharge EKG Data EKG 1: Interpretation: Normal sinus rhythm with a heart rate of 76, left axis deviation, right bundle branch block, no STEMI. There are Q waves in II, III and aVF, appear new in II/aF and new TWI in aVL. EKG changed from previous. Computer generated interpretation: Abdomen/Pelvis CTA 11/11/25 19:43 IMPRESSION: 1. No areas of gross contrast extravasation to suggest an acute GI bleed at this time. 2. Mild abdominal aorta atherosclerosis without evidence of aneurysm or dissection. 3. Additional incidental and chronic findings as above. Discharge Plan Discharge Patient Disposition: Admitted As Inpatient Clinical Impression: Nausea & vomiting, Acute dehydration, Neurogenic bladder, High blood pressure Condition: Stable Coding Level of Care Code ED Die Setter for Aditi Patterson
--- NOTE | 2025-11-11 19:54 | ECG_ITS ---
[employer] Test Date: 2025-11-11 Pat Name: Bartolo Guzmán Department: Room: Gender: Male Wood Machine Carver: : 1945 Requested By: Lexy Beal Order Number: [id number] Reading MD: RICHY BUCHANAN Measurements Intervals [place] Rate: 86 P: 92 UT: 292 QRS: -77 QRSD: 126 T: 84 QT: 419 QTc: 503 Interpretive Statements SINUS RHYTHM WITH FIRST DEGREE AV BLOCK WITH OCCASIONAL ECTOPIC PREMATURE COMPLEXES RIGHT BUNDLE BRANCH BLOCK [120+ ms QRS DURATION, UPRIGHT V1, 40+ ms S IN I/aVL/V4/V5/V6] POSSIBLE ANTERIOR MYOCARDIAL INFARCTION , PROBABLY OLD [30 ms Q WAVE IN V3/V4, OR R < 0.2 mV IN V4] INFERIOR MYOCARDIAL INFARCTION , OF INDETERMINATE AGE [40+ ms Q WAVE AND/OR ST/T ABNORMALITY IN II/aVF] Compared to ECG 11/11/2025 19:16:27 Sinus arrhythmia no longer present Myocardial infarct finding still present Electronically Signed On 11-11-2025 23:17:04 ACTIVITIES DIRECTOR by RICHY BUCHANAN [email or web address]
[2025-11-11] MEDS: iohexol 350 mg/mL 500 mL Btl (per mL) IV (20:31)
[2025-11-11 20:46] LABS: Reflex Lactate Order REFLEX LACTIC ORDERD
[2025-11-11] MEDS: ondansetron 2 mg/ML SDV 2 mL 4 MG IVP (21:22)
[2025-11-11 21:25] LABS: Glucose Urine UA Negative (Normal); Nitrate Urine Positive (Negative); Specific Gravity, Urine 1.017 (1.005-1.030)
[2025-11-11] MEDS: morphine 4 mg/mL SDV 1 mL IVP (21:25)
[2025-11-11 21:30] LABS: Add Urine Microscopic? YES; Universal Test for UA Present (0)
[2025-11-11 21:49] LABS: Lactic Acid level (Lactate) 3.8 mmol/L (0.5-2.2)
[2025-11-11 22:20] LABS: Lipase 47 U/L (13-60)
[2025-11-11] MEDS: cefTRIAXone 1,000 mg SDV 1000 MG IVP (22:29)
[2025-11-11] MEDS: labetalol 5 mg/mL SDV 20mL 10 MG IVP (22:29)
--- NOTE | 2025-11-11 22:40 | PM.HP ---
Providers/Chief Complaint Primary Care Provider: Elizabeth Del Rio MD Chief Complaint: n/v History of Present Illness Bartolo Guzmán is a 80 year old male with history significant for CKD, COPD, and hypertension, who presents with complaints of nausea, vomiting, and abdominal pain. He states at approximately 4 PM on the day presentation, he went to get supper. He soon after suddenly began to vomit. When he got home, he continued to vomit and had dry heaving. Because of this, he decided to come to the ED for further evaluation and management. He denies eating any strange foods. He does mention he had the chills. He says his abdominal pain is likely due to his frequent vomiting. He denies any diarrhea. Medications/Allergies Home Medications ?Medication ?Instructions ?Recorded ?Confirmed ?Last Taken ?Type acetaminophen 500 mg tablet 500 mg PO Q4H 11/16/19 07/29/22 06/26/22 04:30 History (Tylenol Extra Strength) clopidogrel 75 mg tablet (Plavix) 75 mg PO ONCE 11/16/19 07/29/22 06/25/22 History duloxetine 30 mg capsule,delayed 30 mg PO ONCE 11/16/19 07/29/22 06/25/22 History release (Cymbalta) multivitamin 1 cap PO QAM 11/16/19 07/29/22 06/25/22 History pantoprazole 40 mg tablet,delayed 40 mg PO ONCE 11/16/19 07/29/22 06/25/22 History release (Protonix) simvastatin 40 mg tablet 40 mg PO ONCE 11/16/19 07/29/22 06/25/22 History tamsulosin 0.4 mg capsule (Flomax) 0.4 mg PO ONCE 11/16/19 07/29/22 06/25/22 History metoprolol succinate 25 mg 25 mg PO ONCE 05/16/20 07/29/22 06/25/22 History tablet,extended release 24 hr amlodipine 2.5 mg tablet 2.5 mg PO DAILY #90 tabs 03/24/21 07/29/22 06/25/22 Rx metronidazole 500 mg tablet 500 mg PO TID #30 tabs 02/14/22 07/29/22 Unknown Rx ondansetron HCl 4 mg tablet 4 mg PO Q6H PRN nausea and 0407/29/22 06/25/22 Rx vomiting #20 tabs TLSO brace #1 ea 06/23/22 07/29/22 Unknown Rx prednisone 20 mg tablet 20 mg PO DAILY #15 tabs 07/17/22 07/29/22 Unknown Rx tramadol 50 mg tablet 50 mg PO Q4H PRN pain 7 days #30 07/21/22 07/29/22 Unknown Rx tabs baclofen 10 mg tablet 10 mg PO BID 07/29/22 07/29/22 Unknown History Allergies Allergy/AdvReac Type Severity Reaction Status Date / Time No Known Allergies Allergy Verified 07/29/22 10:09 PFSH Acute PFSH: Medical History (Updated 11/12/25 @ 02:50 by Ronald Juan MD) Chronic kidney disease Multifactorial. Obstructive uropathy component secondary to neurogenic bladder Hydronephrosis Secondary to chronic urinary retention Urinary retention 2000 cc with no sensation of fullness at diagnosis 2019 Surgical History Status post tonsillectomy and adenoidectomy Status post vasectomy Status post appendectomy Status post bilateral hip replacements Status post transurethral resection of prostate Status post cholecystectomy Family History Mother , AT AGE 65-ID No problems noted. Father , AT AGE 94-HYPERTENSION CAD (coronary artery disease) Social History Smoking and tobacco/nicotine status: current some day tobacco/nicotine user (cigars) Alcohol intake: current Alcohol intake frequency: holidays/special occasions only Marital status: Current occupational status: employed Current gender identity: Male Vitals/I&O/Wt Last Vital Signs Temp 96.1 F L 11/11/25 18:55 Pulse 76 11/11/25 18:55 Resp 22 H 11/11/25 18:55 BP 169/107 11/11/25 22:30 Pulse Ox 96 11/11/25 22:30 O2 Del Method Room Air 11/11/25 18:55 11/11/25 11/11/25 11/11/25 06:59 14:59 22:59 Intake Total 1000 / 1000 Balance 1000 / 1000 Weight last 48 hrs Weight 88.995 kg Physical Exam Narrative: General: No acute distress, appears stated age CVS: Regular rate and rhythm. No murmurs, rubs, gallops Pulmonary: No acute distress. Lungs clear to auscultation bilaterally Gastrointestinal: Abdomen is soft, full, lower abdominal tenderness to palpation which is mild Neurological: Alert and oriented x 4. Moves all extremities spontaneously Data 11/11/25 18:30 11/11/25 18:30 Micro: Microbiology 11/11/25 20:10 Blood Culture - Preliminary Blood SPECIMEN COLLECTED 11/11/25 20:07 Blood Culture - Preliminary Blood SPECIMEN COLLECTED A&P Assessment and plan 1. Nausea & vomiting: - Supportive care - continuous IV fluids overnight - Suspect food poisoning versus acute viral gastroenteritis 2. Lactic acidosis: - Likely due to his complaints of vomiting - Recheck lab in the morning PDMP PDMP Reviewed: Not Reviewed Attestations Medical Necessity Statement*: Patient anticipated to need less than 2 midnights of inpatient care to ensure recovery from his nausea and vomiting Coding Level of Care Code Acute Code for [facility] Diagnoses Nausea & vomiting R11.2 Lactic acidosis E87.20
[2025-11-12] VITALS (10 sets, daily range): BP systolic 114–181; BP diastolic 68–109; PULSE 60–97; RESP 17–18; TEMP 36.5–36.7; O2SAT 91–98; BMI 27.2
--- NOTE | 2025-11-12 01:01 | ECG_ITS ---
[facility] Test Date: 2025-11-12 Pat Name: Bartolo Guzmán Department: Room: Gender: Male Project Assistant: : 1945 Requested By: Lexy Beal Order Number: [id number] Reading MD: RICHY BUCHANAN Measurements Intervals [place] Rate: 94 P: 0 NM: 0 QRS: -80 QRSD: 125 T: 68 QT: 395 QTc: 496 Interpretive Statements SINUS RHYTHM RIGHT BUNDLE BRANCH BLOCK [120+ ms QRS DURATION, UPRIGHT V1, 40+ ms S IN I/aVL/V4/V5/V6] ANTERIOR MYOCARDIAL INFARCTION , PROBABLY OLD [40+ ms Q WAVE AND/OR ST/T ABNORMALITY IN V3/V4] INFERIOR MYOCARDIAL INFARCTION , OF INDETERMINATE AGE [40+ ms Q WAVE AND/OR ST/T ABNORMALITY IN II/aVF] Compared to ECG 11/11/2025 20:12:25 First degree AV block no longer present Myocardial infarct finding still present Electronically Signed On 11-15-2025 18:55:02 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
[2025-11-12 01:02] LABS: Troponin 5 6HR 15.28 ng/L (0-15)
[2025-11-12 01:12] LABS: Troponin 5 6HR Delta -2.72 ng/L (0-12)
[2025-11-12 04:14] LABS: Hematocrit 48.9 % (37-53); Hemoglobin 16.70 g/dL (11.27-16.99); Mean Corpuscular HGB Conc 34.2 g/dL (30-55); Mean Corpuscular Hemoglobin 34.2 pg (27-33); Mean Corpuscular Volume 100.2 fl (82-101); Nucleated Red Blood Cells % 0 %; Platelet Count 253 10^3/cmm (157-399); Red Blood Count 4.88 10^6/uL (3.85-5.65); White Blood Count 11.13 10^3/uL (3.29-11.43)
[2025-11-12 04:36] LABS: Anion Gap 19.7 (5-19); Blood Urea Nitrogen 11 mg/dL (8-23); Calcium 9.0 mg/dL (8.5-10.5); Carbon Dioxide 24 mmol/L (22-29); Chloride 98 mmol/L (98-107); Glucose 158 mg/dL (65-115); Lactic Sepsis W/Reflex 1.7 mmol/L (0.5-2.2); Osmolality Calculated 289 mOsm/kg (285-295); Potassium 3.7 mmol/L (3.5-5.1); Sodium 138 mmol/L (136-145)
[2025-11-12] MEDS: metoprolol succinate ER (24 HR) 25 mg Tablet 50 MG PO (04:37)
--- NOTE | 2025-11-12 09:04 | PM.DCS ---
Discharge Providers Date of Admission: 11/12/25 00:47 Date of Discharge: November 12, 2025 Attending Provider at Admission: Ronald Juan MD Attending Provider at Discharge: Tamica Horvath NP Primary Care Provider: Elizabeth Del Rio MD Diagnoses at Discharge Discharge Diagnosis 1. Nausea & vomitin. Lactic acidosis: Reason for Visit Reason for Visit: n/v Brief History: Admission: Bartolo Guzmán is a 80 year old male with history significant for CKD, COPD, and hypertension, who presents with complaints of nausea, vomiting, and abdominal pain. He states at approximately 4 PM on the day presentation, he went to get supper. He soon after suddenly began to vomit. When he got home, he continued to vomit and had dry heaving. Because of this, he decided to come to the ED for further evaluation and management. He denies eating any strange foods. He does mention he had the chills. He says his abdominal pain is likely due to his frequent vomiting. He denies any diarrhea. Hospital Course Hospital Course 1. Nausea & vomiting: Rexolved - Supportive care - Given IV fluids overnight - Suspect food poisoning versus acute viral gastroenteritis 2. Lactic acidosis: Resolved - Likely due to his complaints of vomiting Discharge: Patient had resolution of nausea and vomiting, able to tolerate oral intake of food and fluids. Lactic acid within normal limits at discharge. Discharges in stable condition to resume soft bland diet. Patient prescribed supportive medications Bentyl and Zofran. Patient is advised to follow-up with primary care provider in 1 to 2 days of discharge. All questions and concerns addressed to the patient prior to discharge. Physical Exam Narrative: General: No acute distress, appears stated age CVS: Regular rate and rhythm. No murmurs, rubs, gallops Pulmonary: No acute distress. Lungs clear to auscultation bilaterally Gastrointestinal: Abdomen is soft, full, no abdominal tenderness noted. Neurological: Alert and oriented x 4. Moves all extremities spontaneously Discharge Data Studies Completed and Pending Completed Studies During Hospitalization Category Date Time Status CT angio abdomen pelvis 26729 Stat Cat Scan 11/11/25 19:43 Completed Pending at discharge Category Date Time Status Blood Culture Stat Lab 11/11/25 20:10 Results Radiology Impressions Abdomen/Pelvis CTA 11/11/25 19:43 IMPRESSION: 1. No areas of gross contrast extravasation to suggest an acute GI bleed at this time. 2. Mild abdominal aorta atherosclerosis without evidence of aneurysm or dissection. 3. Additional incidental and chronic findings as above. Laboratory Results WBC 11.13 10^3/uL (3.29-11.43) 11/12/25 04:07 RBC 4.88 10^6/uL (3.85-5.65) 11/12/25 04:07 Hgb 16.70 g/dL (11.27-16.99) 11/12/25 04:07 Hct 48.9 % (37-53) 11/12/25 04:07 MCV 100.2 fl (82-101) 11/12/25 04:07 MCH 34.2 pg (27-33) H 11/12/25 04:07 MCHC 34.2 g/dL (30-55) 11/12/25 04:07 RDW 12.6 % (12.1-15.1) 11/12/25 04:07 Plt Count 253 10^3/cmm (157-399) 11/12/25 04:07 MPV 8.9 fL (7.4-10.4) 11/12/25 04:07 Neut % (Auto) 81.8 % 11/12/25 04:07 Lymph % (Auto) 13.9 % 11/12/25 04:07 Clarke % (Auto) 3.8 % 11/12/25 04:07 Eos % (Auto) 0.0 % 11/12/25 04:07 Baso % (Auto) 0.2 % 11/12/25 04:07 Neut # (Auto) 9.11 10^3/uL (1.8-7.7) H 11/12/25 04:07 Lymph # (Auto) 1.6 10^3/uL (0.8-4.8) 11/12/25 04:07 Clarke # (Auto) 0.4 10^3/uL (0.2-0.9) 11/12/25 04:07 Eos # (Auto) 0.0 10^3/uL (0.0-0.8) 11/12/25 04:07 Baso # (Auto) 0.0 10^3/uL (0.0-0.1) 11/12/25 04:07 Nucleated RBC % (auto) 0 % 11/12/25 04:07 Nucleated RBCs # 0.0 /100WBC 11/12/25 04:07 Sodium 138 mmol/L (136-145) 11/12/25 04:07 Potassium 3.7 mmol/L (3.5-5.1) 11/12/25 04:07 Chloride 98 mmol/L (98-107) 11/12/25 04:07 Carbon Dioxide 24 mmol/L (22-29) 11/12/25 04:07 Anion Gap 19.7 (5-19) H 11/12/25 04:07 BUN 11 mg/dL (8-23) 11/12/25 04:07 Creatinine 1.0 mg/dL (0.7-1.2) 11/12/25 04:07 GFR Calculation Not Reportable 11/12/25 04:07 Glucose 158 mg/dL (65-115) H 11/12/25 04:07 Calculated Osmolality 289 mOsm/kg (285-295) 11/12/25 04:07 Lactic Acid 1.7 mmol/L (0.5-2.2) 11/12/25 04:07 Lactic Acid (Sepsis) 3.8 mmol/L (0.5-2.2) H 11/11/25 21:28 Calcium 9.0 mg/dL (8.5-10.5) 11/12/25 04:07 Total Bilirubin 1.2 mg/dL (0.15-1.2) 11/11/25 18:30 AST 81 U/L (0-40) H 11/11/25 18:30 ALT 53 U/L (0-41) H 11/11/25 18:30 Alkaline Phosphatase 130 U/L (40-130) 11/11/25 18:30 Troponin T Baseline 18 ng/L (0-15) H 11/11/25 18:30 Troponin T 60 Minute 15.83 ng/L (0-15) H 11/11/25 19:27 Delta Troponin T -2.17 ABS# (0-10) L 11/11/25 19:27 Troponin T Hi Sens 6Hr 15.28 ng/L (0-15) H 11/12/25 00:40 Troponin T Hi Sens 6Hr Delta -2.72 ng/L (0-12) L 11/12/25 00:40 Total Protein 7.8 g/dL (6.6-8.7) 11/11/25 18:30 Albumin 4.9 g/dL (3.5-5.2) 11/11/25 18:30 Globulin 2.9 g/dL (1.3-4.6) 11/11/25 18:30 Lipase 47 U/L (13-60) 11/11/25 18:30 Urine Color Yellow (Yellow) 11/11/25 21:11 Urine Appearance Clear (CLEAR) 11/11/25 21:11 Urine pH 6.5 (5-7) 11/11/25 21:11 Ur Specific [place] 1.017 (1.005-1.030) 11/11/25 21:11 Urine Protein Negative (Negative) 11/11/25 21:11 Urine Glucose (UA) Negative (Normal) 11/11/25 21:11 Urine Ketones 1+ (Negative) H 11/11/25 21:11 Urine Blood Negative (Negative) 11/11/25 21:11 Urine Nitrate Positive (Negative) A 11/11/25 21:11 Urine Bilirubin Negative (Negative) 11/11/25 21:11 Urine Urobilinogen 1.0 mg/dL (Negative) 11/11/25 21:11 Ur Leukocyte Esterase 1+ (Negative) A 11/11/25 21:11 Urine RBC 0-2 /hpf (0-2) 11/11/25 21:11 Urine WBC 6-10 /hpf (0-5) 11/11/25 21:11 Ur Squamous Epith Cells 0-5 /hpf (0-5) 11/11/25 21:11 Amorphous Sediment Not Reportable 11/11/25 21:11 Urine Bacteria None seen /hpf (NONE) 11/11/25 21:11 Hyaline Casts 0.40 /lpf 11/11/25 21:11 Influenza A (PCR) Negative (Negative) 11/11/25 19:02 Influenza Type B (PCR) Negative (Negative) 11/11/25 19:02 RSV (PCR) Negative (Negative) 11/11/25 19:02 SARS-CoV-2 (PCR) Negative (Negative) 11/11/25 19:02 Vitals Last Vital Signs Temp 97.8 F 11/12/25 07:41 Pulse 84 11/12/25 07:41 Resp 17 11/12/25 07:41 BP 174/96 11/12/25 07:41 Pulse Ox 98 11/12/25 07:41 O2 Del Method Room Air 11/12/25 07:41 Discharge Plan Discharge Patient Disposition: Home Condition: Stable Prescriptions: New dicyclomine 10 mg capsule 10 mg PO TID Qty: 14 0RF ondansetron 8 mg tablet,disintegrating 8 mg PO Q8H PRN (Reason: nausea and vomiting) 5 Days Qty: 14 0RF Continued duloxetine [Cymbalta] 30 mg capsule,delayed release(DR/EC) 30 mg PO ONCE clopidogrel [Plavix] 75 mg tablet 75 mg PO ONCE tamsulosin [Flomax] 0.4 mg capsule 0.4 mg PO ONCE simvastatin 40 mg tablet 40 mg PO ONCE pantoprazole [Protonix] 40 mg tablet,delayed release (DR/EC) 40 mg PO ONCE multivitamin Capsule 1 cap PO QAM acetaminophen [Tylenol Extra Strength] 500 mg tablet 500 mg PO Q4H metoprolol succinate 25 mg tablet extended release 24 hr 25 mg PO ONCE (DME) TLSO brace See Rx Instructions .Route .MEDSUPPLY Qty: 1 0RF Rx Instructions: lumbar spine baclofen 10 mg tablet 10 mg PO BID amlodipine 2.5 mg tablet 2.5 mg PO DAILY Qty: 90 0RF prednisone 20 mg tablet 20 mg PO DAILY Qty: 15 0RF Rx Instructions: 60mg on day 1,2,3 40mg on day 4,5 20mg on day 6,7 tramadol 50 mg tablet 50 mg PO Q4H PRN (Reason: pain) 7 Days Qty: 30 0RF Discontinued metronidazole 500 mg tablet 500 mg PO TID Qty: 30 0RF ondansetron HCl 4 mg tablet 4 mg PO Q6H PRN (Reason: nausea and vomiting) Qty: 20 0RF Discharge Order = DC NOW: Discharge Order (Routine); Ordered 11/12/25 Ordered By: Tamica Horvath Referrals: Elizabeth Del Rio MD [Primary Care Provider, Internal Medicine] Discharge Diet: Advance as tolerated Discharge Activity: Resume usual activity Patient Instructions: Opioid Safety, Patient Portal & Aric Instructions Discharge Attestations Time Spent in Discharge Care*: greater than 30 min Quality Metrics Clinical Quality Measures [ No reported AMI, CVA or VTE this stay] Coding Level of Care Code 42095 Diagnoses Nausea & vomiting R11.2 Vomiting type: unspecified Lactic acidosis E87.20
[2025-11-12] MEDS: ondansetron 2 mg/ML SDV 2 mL 4 MG IVP (10:45)
--- NOTE | 2025-11-12 14:49 | P.PN_ITS ---
Subjective 2 Subjective: Patient is a very pleasant 80-year-old male seen and examined at bedside on hospital rounds today. Patient sitting up in bed was able to tolerate a soft bland diet this morning but still felt nauseated. Attempted to discharge patient, unfortunately 1 blood cultures positive for gram-positive cocci in until this can be proven as a contaminant we will empirically cover with IV antibiotics. Reached out to infectious disease Dr. Kern for consultation, currently pending response. Patient denies current chest pain or shortness of breath, has no abdominal tenderness currently. Patient's vital signs reviewed blood pressure 178/90, pulse 78, respirations 18, temperature 97.7 ?F, oxygen saturation 94% on room air. WBC 11.13, hemoglobin 16.70, BUN 11, creatinine 1.0, lactic acid within normal limits 1.7. Troponin 18, 15.83, 15.28, negative delta. Vitals/I&O/Wt Last Vital Signs Temp 97.7 F 11/12/25 10:37 Pulse 78 11/12/25 10:37 Resp 18 11/12/25 10:37 BP 178/90 11/12/25 10:37 Pulse Ox 94 11/12/25 10:37 O2 Del Method Room Air 11/12/25 10:37 11/11/25 11/12/25 11/12/25 22:59 06:59 14:59 Intake Total 1000 / 1000 1000 / 2000 1696.667 / 1696.667 Output Total 500 / 500 Balance 1000 / 1000 1000 / 2000 1196.667 / 1196.667 Weight last 48 hrs Weight 83.688 kg Weight 88.995 kg Physical Exam 2 Narrative: General: No acute distress, appears stated age CVS: Regular rate and rhythm. No murmurs, rubs, gallops Pulmonary: No acute distress. Lungs clear to auscultation bilaterally Gastrointestinal: Abdomen is soft, full, no abdominal tenderness, bowel sounds x 4 WNL. Neurological: Alert and oriented x 4. Moves all extremities spontaneously Data 11/12/25 04:07 11/12/25 04:07 Micro: Microbiology 11/11/25 20:10 Blood Culture - Preliminary Blood 11/11/25 20:07 Blood Culture - Preliminary Blood SPECIMEN COLLECTED A&P Assessment and plan 1. Bacteremia: - 1/2 blood culture with gram pos cocci - Initiated on vancomycin, pharmacy to dose - Pending MRSA - Awaiting infectious disease consultation 2. Nausea & vomiting: - Supportive care - continuous IV fluids overnight - Suspect food poisoning versus acute viral gastroenteritis 3. Lactic acidosis: - Likely due to his complaints of vomiting - Recheck lab in the morning 4. High blood pressure: - Resume amlodipine 10 mg daily, metoprolol 50 mg daily - As needed IV hydralazine for SBP greater than 180 5. Chronic kidney disease: - Admitting creatinine 1.3, this seems to be his baseline - Renally dose medication, avoid nephrotoxic agents 6. Urinary retention: - Continue Flomax 0.4 mg daily - Monitor PDMP PDMP Reviewed: Not Reviewed Attestations 2 Medical Necessity Statement*: Patient anticipated to need greater than 2 midnights of inpatient care due to positive blood culture, IV antibiotic therapy, and complex medical management. Coding Level of Care Code 30323 Diagnoses Bacteremia R78.81 Nausea & vomiting R11.2 Lactic acidosis E87.20 High blood pressure I10 Chronic kidney disease N18.9 Urinary retention R33.9
--- OUTSIDE RECORDS SUMMARY | 2025-11-12 15:23 | XMS_ITS | Clinical Summary ---
Author Organization [facility] Address [address] [address] Care Team Providers Care Grease Press Helper Name Role Phone Elizabeth Del Rio MD Primary Care Provider [phone] Allergies No known active allergies Medications pantoprazole [...] Comments Blood Pressure 142/80 12/12/2024 2:27 PM FORM MAKER PLASTER Pulse 90 12/12/2024 2:27 PM FORM MAKER PLASTER Temperature 36.2 C (97.1 F) 10/22/2020 9:09 AM FORM MAKER PLASTER Respiratory Rate - - Oxygen Saturation 98% 12/12/2024 2:27 PM FORM MAKER PLASTER Inhaled Oxygen Concentration - - Weight 87.3 kg (192 lb 6.4 oz) 12/12/2024 2:27 P M FORM MAKER PLASTER Height 177.8 cm (5' 10 ) 12/12/2024 2:27 PM FORM MAKER PLASTER Body Mass Index 27.61 12/12/2024 2:27 PM FORM MAKER PLASTER Plan of Treatment Health Maintenance Due Date Last Done Comments Pneumococcal Vaccine: 50+ Ye ars (1 of 2 - PCV) 01[birth year]20/1964 Influenza Vaccine (#1) 2025 Hepatitis B Vaccine Aged Out No longe r eligible based on patient's age to complete this topic Insurance Medicare Care Teams Grease Press Helper Relationship Specialty Start Date End Date Elizabeth Del Rio MD [address] [place] [address] PCP - General Internal Medicine 06/16/19
--- OUTSIDE RECORDS SUMMARY | 2025-11-12 15:23 | XMS_ITS | Encounter Summary ---
Author Organization [facility] Address [address] [place] [address] Phone Care Team Providers Care Lab Intern Name Role Phone Elizabeth Del Rio MD Primary Care Provider [phone] Encounter Details Date Type Department Care Team (Late st Contact Info) Description 05/12/2019 Orders Only [facility] [address] [place] [address] Chronic kidney disease, stage 3 [...] Hypertension documented in this encounter Care Teams Lab Intern Relationship Specialty Start Date End Date Elizabeth Del Rio MD [address] [place] [address] PCP - General Internal Medicine 06/16/19 documented as of this encounter
--- OUTSIDE RECORDS SUMMARY | 2025-11-12 15:23 | XMS_ITS | Encounter Summary ---
Author Organization [facility] Address [address] [place] [address] Phone Care Team Providers Care Hr Consultant Name Role Phone Elizabeth Del Rio MD Primary Care Provider [phone] Encounter Details Date Type Department Care Team (Late st Contact Info) Description 11/13/[address] [facility] [address] [place] [address] Sacha Castañeda MD Chronic kidney [...] (HCC) documented in this encounter Care Teams Hr Consultant Relationship Specialty Start Date End Date Elizabeth Del Rio MD [address] [place] [address] PCP - General Internal Medicine 06/16/19 documented as of this encounter
[2025-11-12] MEDS: vancomycin 1,750 MG/350 ML PIGGYBACK 175 MG IV (16:57)
[2025-11-12 19:19] LABS: MRSA PCR OZH (swab) MRSA Not Detected (Negative)
--- NOTE | 2025-11-12 23:23 | PM.CONSULT ---
Providers/Reason For Consult Consulting Physician/Specialty*: Brittney Kern MD/Infectious DIsease Reason for Consult*: staphylococcus spp bacteremia Requesting Physician: Tamica Horvath NP Attending Physician: Tamica Horvath NP Primary Care Provider: Elizabeth Del Rio MD History of Present Illness History of Present Illness Bartolo Guzmán is a 80 year old male with history significant for CKD, COPD, and hypertension, who presented to the ER on 11/11 with complaints of nausea, vomiting, and abdominal pain shortly after eating supper at home. He was found to have mild leukocytosis,elavated lactate, high anion gap which were attributed to dehydration from GI losses. Lipase was negative. CTA abdomen/pelvis was negative for any ischemic bowel events or bleeeding. No pancreatitis. He was planned to be discharged today however 11/18 blood cx returned positive for staphylococcus species. ID consulted for abx recommendations . He has currently been started on iv vancomycin. Review of Systems General: Reports: 10 or more systems reviewed and unremarkable except in HPI and below Const: Denies: fever(s), chills or body aches Eyes: Denies: change in vision, blurry vision or photophobia ENMT: Reports: hoarseness; Denies: throat pain, enlarged tonsils, odynophagia or nasal congestion Card: Denies: chest pain, palpitations, irregular heart rhythm, edema, swelling of feet/ankles, lightheadedness, pre-syncope, dyspnea on exertion or orthopnea Resp: Denies: dyspnea, productive cough, non-productive cough, wheezing, stridor, pain on inspiration, change in phlegm color, hemoptysis or chest congestion GI: Denies: abdominal pain, nausea, vomiting, hematemesis, coffee ground emesis, dysphagia, heartburn, diarrhea, constipation, GI cramping, change in stool character, hematochezia or melena : Denies: flank pain, dysuria, urinary frequency, urinary urgency, urinary hesitancy or hematuria Musc: Denies: neck pain, back pain, extremity pain, joint swelling, joint warmth or deformity Neuro: Denies: headache(s), numbness in extremities, weakness in extremities, sensory changes, difficulty walking, frequent falls, dizziness, vertigo, behavioral changes, Slurred speech present or seizure-like activity Psych: Denies: anxiety, depression, suicidal ideation or homicidal ideation Endo: Denies: polyuria, polydipsia, tired all the time, cold intolerance or hot flashes Earnest/Lymph: Denies: easy bruising or easy bleeding Medications/Allergies Home Medications ?Medication ?Instructions ?Recorded ?Confirmed ?Last Taken ?Type acetaminophen 500 mg tablet 500 mg PO Q4H 11/16/19 11/12/25 06/26/22 04:30 History (Tylenol Extra Strength) clopidogrel 75 mg tablet (Plavix) 75 mg PO ONCE 11/16/19 11/12/25 06/25/22 History pantoprazole 40 mg tablet,delayed 40 mg PO ONCE 11/16/19 11/12/25 06/25/22 History release (Protonix) TLSO brace #1 ea 06/23/22 11/12/25 Unknown Rx dicyclomine 10 mg capsule 10 mg PO TID #14 caps 11/12/25 Unknown Rx ezetimibe 10 mg tablet 10 mg PO DAILY 11/12/25 11/12/25 Unknown History metoprolol succinate 50 mg 50 mg PO DAILY 11/12/25 11/12/25 Unknown History tablet,extended release 24 hr pvcqxleaximh-tmv-vttbt acid-vit 1 tab PO DAILY 11/12/25 11/12/25 Unknown History K-lycop 400 mcg-20 mcg-370 mcg tablet (Men's 50 Plus Multivitamin) ondansetron 8 mg disintegrating 8 mg PO Q8H PRN nausea and 11/12/25 Unknown Rx tablet vomiting 5 days #14 tabs tamsulosin 0.4 mg capsule 0.8 mg PO BEDTIME 11/12/25 11/12/25 Unknown History Allergies Allergy/AdvReac Type Severity Reaction Status Date / Time No Known Allergies Allergy Verified 07/29/22 10:09 Current Medications Generic Name Dose Route Start Last Admin Trade Name Freq PRN Reason Stop Dose Admin Amlodipine Besylate 10 mg 11/12/25 05:00 11/12/25 04:37 Amlodipine 10 Mg Tablet PO 10 mg DAILY FRITZ Administration Clopidogrel Bisulfate 75 mg 11/12/25 05:00 11/12/25 04:37 Clopidogrel 75 Mg Tablet PO 75 mg DAILY FRITZ Administration Dicyclomine HCl 20 mg 11/12/25 12:12 11/12/25 12:52 Dicyclomine 20 Mg Tablet PO 20 mg ONCE PRN Administration SPASMS Duloxetine HCl 30 mg 11/12/25 05:00 11/12/25 04:37 Duloxetine 30 Mg Capsule PO 30 mg DAILY FRITZ Administration Ezetimibe 10 mg 11/12/25 21:00 11/12/25 21:39 Ezetimibe 10 Mg Tablet PO 10 mg BEDTIME FRITZ Administration Enoxaparin Sodium 40 mg 11/12/25 01:28 11/12/25 03:05 Enoxaparin 40 Mg/0.4 Ml Syringe SUBCUT 40 mg Q24H FRITZ Administration Sodium Chloride 1,000 mls @ 100 mls/hr 11/12/25 01:28 11/12/25 21:40 Sodium Chloride 0.9% IV 100 mls/hr .Q10H FRITZ Administration Metoprolol Succinate 50 mg 11/12/25 05:00 11/12/25 04:37 Metoprolol Succinate Er (24 Hr) 25 Mg Tablet PO 50 mg DAILY FRITZ Administration Ondansetron HCl 4 mg 11/12/25 01:28 11/12/25 10:45 Ondansetron 2 Mg/Ml Sdv 2 Ml IVP 4 mg Q8H PRN Administration vomiting, or N/V if npo Pantoprazole Sodium 40 mg 11/12/25 05:00 11/12/25 04:[address] 40 Mg Tablet PO 40 mg DAILY FRITZ Administration Tamsulosin HCl 0.4 mg 11/12/25 05:00 11/12/25 04:37 Tamsulosin 0.4 Mg Capsule PO 0.4 mg DAILY FRITZ Administration PFSH Acute PFSH: Medical History Chronic kidney disease Multifactorial. Obstructive uropathy component secondary to neurogenic bladder Hydronephrosis Secondary to chronic urinary retention Urinary retention 2000 cc with no sensation of fullness at diagnosis 2018 Surgical History Status post tonsillectomy and adenoidectomy Status post vasectomy Status post appendectomy Status post bilateral hip replacements Status post transurethral resection of prostate Status post cholecystectomy Family History Mother , AT AGE 65-[place] No problems noted. Father , AT AGE 94-HYPERTENSION CAD (coronary artery disease) Social History Smoking and tobacco/nicotine status: current some day tobacco/nicotine user (cigars) Alcohol intake: current Alcohol intake frequency: holidays/special occasions only Marital status: Current occupational status: employed Current gender identity: Male Vitals/I&O/Wt Last Vital Signs Temp 98.1 F 11/12/25 20:00 Pulse 60 11/12/25 20:00 Resp 18 11/12/25 20:00 BP 114/68 11/12/25 20:00 Pulse Ox 96 11/12/25 20:00 O2 Del Method Room Air 11/12/25 15:54 11/12/25 11/12/25 11/13/25 14:59 22:59 06:59 Intake Total 1696.667 / 4507.690 9167.667 / 3288.334 Output Total 500 / 500 400 / 900 Balance 1196.667 / 3030.480 0597.667 / 2388.334 Weight last 48 hrs Weight 83.688 kg Weight 88.995 kg Physical Exam Narrative: Assessed via telehealth no acute distress alert awake and oriented ext: no open sores or lesions no cardiac or endovascular hardware Data 11/12/25 04:07 11/12/25 04:07 Micro: Microbiology 11/11/25 20:07 Blood Culture - Preliminary Blood NEGATIVE TO DATE 11/11/25 20:10 Blood Culture - Preliminary Blood Staphylococcus species NAME: Bartolo Guzmán LOC: [facility] #: [id number] AGE/SX: 80/M ROOM: 253 RE11/12/[address]: Tamica Horvath : 1945 BED: 1 DIS: FAX #: STATUS: ADM QI TLOC: Spec #: [id number] Tawanna: 11/11/25 Status: RES Req #: [id number] Recd: 11/11/[address]: Lexy Beal MD Src: Blood SpDesc: Ordered: Bcult Procedure Result Verified Site Blood Culture Preliminary 11/12/25 1 OF 4 BOTTLES POSITIVE DIRECT GRAM STAIN: GRAM POSITIVE COCCI IN CLUSTERS IDENTIFICATION BY DIRECT PCR STAPH AUREUS NOT DETECTED RESULTS TO FOLLOW Organism 1 Staphylococcus species Growth 1 BOTTLE Gram Stain Charge Charge for Gram Stain CRITICAL RESULT YES/NO: YES CRITICAL CALLED BY: ROSALIO TO AND READ BACK BY: [facility] DATE: 11/12/25 TIME: 1421 Blood Culture Preliminary (changed) 11/12/25-1420 1 OF 4 BOTTLES POSITIVE DIRECT GRAM STAIN: GRAM POSITIVE COCCI IN CLUSTERS RESULTS TO FOLLOW Gram Stain Charge Charge for Gram Stain CRITICAL RESULT YES/NO: YES CRITICAL CALLED BY: ROSALIO TO AND READ BACK BY: [facility] DATE: 11/12/25 TIME: 1421 Blood Culture Preliminary (changed) 11/11/25-2019 SPECIMEN COLLECTED Other data: Radiology Impressions Abdomen/Pelvis CTA 11/11/25 19:43 IMPRESSION: 1. No areas of gross contrast extravasation to suggest an acute GI bleed at this time. 2. Mild abdominal aorta atherosclerosis without evidence of aneurysm or dissection. 3. Additional incidental and chronic findings as above. Laboratory Results WBC 11.13 10^3/uL (3.29-11.43) 11/12/25 04:07 RBC 4.88 10^6/uL (3.85-5.65) 11/12/25 04:07 Hgb 16.70 g/dL (11.27-16.99) 11/12/25 04:07 Hct 48.9 % (37-53) 11/12/25 04:07 MCV 100.2 fl (82-101) 11/12/25 04:07 MCH 34.2 pg (27-33) H 11/12/25 04:07 MCHC 34.2 g/dL (30-55) 11/12/25 04:07 RDW 12.6 % (12.1-15.1) 11/12/25 04:07 Plt Count 253 10^3/cmm (157-399) 11/12/25 04:07 MPV 8.9 fL (7.4-10.4) 11/12/25 04:07 Neut % (Auto) 81.8 % 11/12/25 04:07 Lymph % (Auto) 13.9 % 11/12/25 04:07 [place] % (Auto) 3.8 % 11/12/25 04:07 Eos % (Auto) 0.0 % 11/12/25 04:07 Baso % (Auto) 0.2 % 11/12/25 04:07 Neut # (Auto) 9.11 10^3/uL (1.8-7.7) H 11/12/25 04:07 Lymph # (Auto) 1.6 10^3/uL (0.8-4.8) 11/12/25 04:07 [place] # (Auto) 0.4 10^3/uL (0.2-0.9) 11/12/25 04:07 Eos # (Auto) 0.0 10^3/uL (0.0-0.8) 11/12/25 04:07 Baso # (Auto) 0.0 10^3/uL (0.0-0.1) 11/12/25 04:07 Nucleated RBC % (auto) 0 % 11/12/25 04:07 Nucleated RBCs # 0.0 /100WBC 11/12/25 04:07 Sodium 138 mmol/L (136-145) 11/12/25 04:07 Potassium 3.7 mmol/L (3.5-5.1) 11/12/25 04:07 Chloride 98 mmol/L (98-107) 11/12/25 04:07 Carbon Dioxide 24 mmol/L (22-29) 11/12/25 04:07 Anion Gap 19.7 (5-19) H 11/12/25 04:07 BUN 11 mg/dL (8-23) 11/12/25 04:07 Creatinine 1.0 mg/dL (0.7-1.2) 11/12/25 04:07 GFR Calculation Not Reportable 11/12/25 04:07 Glucose 158 mg/dL (65-115) H 11/12/25 04:07 Calculated Osmolality 289 mOsm/kg (285-295) 11/12/25 04:07 Lactic Acid 1.7 mmol/L (0.5-2.2) 11/12/25 04:07 Lactic Acid (Sepsis) 3.8 mmol/L (0.5-2.2) H 11/11/25 21:28 Calcium 9.0 mg/dL (8.5-10.5) 11/12/25 04:07 Total Bilirubin 1.2 mg/dL (0.15-1.2) 11/11/25 18:30 AST 81 U/L (0-40) H 11/11/25 18:30 ALT 53 U/L (0-41) H 11/11/25 18:30 Alkaline Phosphatase 130 U/L (40-130) 11/11/25 18:30 Troponin T Baseline 18 ng/L (0-15) H 11/11/25 18:30 Troponin T 60 Minute 15.83 ng/L (0-15) H 11/11/25 19:27 Delta Troponin T -2.17 ABS# (0-10) L 11/11/25 19:27 Troponin T Hi Sens 6Hr 15.28 ng/L (0-15) H 11/12/25 00:40 Troponin T Hi Sens 6Hr Delta -2.72 ng/L (0-12) L 11/12/25 00:40 Total Protein 7.8 g/dL (6.6-8.7) 11/11/25 18:30 Albumin 4.9 g/dL (3.5-5.2) 11/11/25 18:30 Globulin 2.9 g/dL (1.3-4.6) 11/11/25 18:30 Lipase 47 U/L (13-60) 11/11/25 18:30 Urine Color Yellow (Yellow) 11/11/25 21:11 Urine Appearance Clear (CLEAR) 11/11/25 21:11 Urine pH 6.5 (5-7) 11/11/25 21:11 Ur Specific [place] 1.017 (1.005-1.030) 11/11/25 21:11 Urine Protein Negative (Negative) 11/11/25 21:11 Urine Glucose (UA) Negative (Normal) 11/11/25 21:11 Urine Ketones 1+ (Negative) H 11/11/25 21:11 Urine Blood Negative (Negative) 11/11/25 21:11 Urine Nitrate Positive (Negative) A 11/11/25 21:11 Urine Bilirubin Negative (Negative) 11/11/25 21:11 Urine Urobilinogen 1.0 mg/dL (Negative) 11/11/25 21:11 Ur Leukocyte Esterase 1+ (Negative) A 11/11/25 21:11 Urine RBC 0-2 /hpf (0-2) 11/11/25 21:11 Urine WBC 6-10 /hpf (0-5) 11/11/25 21:11 Ur Squamous Epith Cells 0-5 /hpf (0-5) 11/11/25 21:11 Amorphous Sediment Not Reportable 11/11/25 21:11 Urine Bacteria None seen /hpf (NONE) 11/11/25 21:11 Hyaline Casts 0.40 /lpf 11/11/25 21:11 Nasal MRSA (PCR) Mrsa not detected (Negative) 11/12/25 17:00 Influenza A (PCR) Negative (Negative) 11/11/25 19:02 Influenza Type B (PCR) Negative (Negative) 11/11/25 19:02 RSV (PCR) Negative (Negative) 11/11/25 19:02 SARS-CoV-2 (PCR) Negative (Negative) 11/11/25 19:02 A&P Assessment and plan 1. Bacteremia: 2. Nausea & vomiting: Plan: 80M currently admitted to the hospital with intractable nausea and vomiting, lactic acidosis, high anion gap related to dehydration from GI losses Leukocytosis resolved withput directed intervention CT ABdomen without any acute abdominal abscess or acute events 1/4 blood cx positive for staphylococcus species, NOT staph aureus per PCR testing. Likely not staph epridermidis or staph lugdenensis as those will be PCR reportable- will confirm with micro lab Favor CoNs staph with contamination check CXR to complete evaluation evaluation of nausea per primary team Can discontinue iv vancomycin , no abx indicated at discharge given contaminated cx PDMP PDMP Reviewed: Not Reviewed Coding Level of Care Code Acute Code for Chg Fwd Diagnoses Bacteremia R78.81 Nausea & vomiting R11.2
[2025-11-13] VITALS: BP 125/64; PULSE 60; RESP 18; TEMP 36.6; O2SAT 97
[2025-11-13 04:00] VITALS: BP 117/71; PULSE 71; RESP 18; TEMP 36.8; O2SAT 94
[2025-11-13] MEDS: metoprolol succinate ER (24 HR) 25 mg Tablet 50 MG PO (05:24)
--- NOTE | 2025-11-13 06:00 | XR_ITS ---
WS: [id number] Portable AP upright chest, 11/13/2025 Clinical Data: bacteremia source evaluation Comparison: Portable chest, 06/18/2022 Findings: No nodules, masses or effusions are seen. The heart is normal. The pulmonary vascularity is not increased. No pneumonia or pneumothorax is seen. The aortic arch shows calcification and tortuosity of the descending thoracic aorta. There is vertebroplasty cement in the L1 vertebral body. XR/XR chest 1V portable [id number] Impression: Atherosclerosis.
--- NOTE | 2025-11-13 07:00 | PHA.VACGOAL ---
Vancomycin Goal - Goal Vancomycin Goal:: 15-20 mg/L Vancomycin Indication:: Other - Therapy Day of therpy:: Day []of [] . Actual body weight (kg): 184 lb 6 oz - Data Labs: WBC 11.13 10^3/uL (3.29-11.43) 11/12/25 04:07 RBC 4.88 10^6/uL (3.85-5.65) 11/12/25 04:07 Hgb 16.70 g/dL (11.27-16.99) 11/12/25 04:07 Hct 48.9 % (37-53) 11/12/25 04:07 MCV 100.2 fl (82-101) 11/12/25 04:07 MCH 34.2 pg (27-33) H 11/12/25 04:07 MCHC 34.2 g/dL (30-55) 11/12/25 04:07 RDW 12.6 % (12.1-15.1) 11/12/25 04:07 Sodium 138 mmol/L (136-145) 11/12/25 04:07 Potassium 3.7 mmol/L (3.5-5.1) 11/12/25 04:07 Chloride 98 mmol/L (98-107) 11/12/25 04:07 Carbon Dioxide 24 mmol/L (22-29) 11/12/25 04:07 Anion Gap 19.7 (5-19) H 11/12/25 04:07 BUN 11 mg/dL (8-23) 11/12/25 04:07 Creatinine 1.0 mg/dL (0.7-1.2) 11/12/25 04:07 GFR Calculation Not Reportable 11/12/25 04:07 Last dialysis session:: N/A Treatment plan:: new consult Regimen:: [place] [address] MG X 1 MAINTENANCE DOSE OF 1000 MG Q12H Follow up:: WILL CONTINUE TO MONITOR AND FOLLOW UP DAILY
[2025-11-13 07:34] VITALS: BP 158/85; PULSE 76; RESP 18; TEMP 36.7; O2SAT 97
--- NOTE | 2025-11-13 09:35 | PC.CHAP ---
Pastoral Care Encounter/Spiritual Assessment Type of Contact [] Declined operations chief visit [] Patient/Family/Request visit [] Outpatient visit [] Follow-up visit [] Physician referral [] Code/Alert [x] Routine visit [] Staff referral [] Actively dying [] Patient sleeping [] Family support [] [] Out of room [] Palliative care [] [] Receiving care in room [] Pre-surgical visit [] Trauma [] Long length of stay [] ICU visit [] Other: Relational/Emotional Strength [x] Patient feels connected with others/family/visitors/staff [] Distress [] Loneliness/isolation [] Abandonment Spirituality of Patient [x] Person of Annalisa [] Attends Jewish of their Annalisa [x] Believes in Prayer [] Reads Bible or Christianity materials [] There are Spiritual issues to be addressed 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 [x] Prayer [x] Active listening [] Non-anxious presence [x] Spiritual/emotional support [] Crisis/trauma care [] Spiritual counseling [] Bereavement support [] Provided bereavement packet [] Provided Bible/devotional materials [] Provided toy/stuffed animal, coloring book to patient or family member [] Provided Communion [] Anointing/[place] [] Salvation [x] Completed spiritual assessment [] Other: Impact on Illness or Injury [] Angry [] Fearful [] Anxious [] Often cries [] Exhaustion [] Unable to work [] Unable to attend episcopal [] Unable to walk/stand [] Unable to read [] Unable to drive [] Unable to eat/drink [] Unable to sleep [] Unable to be with family [] Patient intubated [] Other: Summary Time spent with patient 5 min
[2025-11-13 11:22] VITALS: BP 118/71; PULSE 71; RESP 15; TEMP 36.6; O2SAT 94
--- NOTE | 2025-11-13 12:40 | P.DS_ITS ---
Discharge Providers Date of Admission: 11/12/25 14:49 Date of Discharge: November 13, 2025 Attending Provider at Admission: Ronadl Juan MD Attending Provider at Discharge: Tamica Horvath NP Primary Care Provider: Elizabeth Del Rio MD Diagnoses at Discharge Discharge Diagnosis 1. Bacteremia: 2. Nausea & vomiting: Reason for Visit Reason for Visit: n/v Brief History: Admission: Bartolo Guzmán is a 80 year old male with history significant for CKD, COPD, and hypertension, who presents with complaints of nausea, vomiting, and abdominal pain. He states at approximately 4 PM on the day presentation, he went to get supper. He soon after suddenly began to vomit. When he got home, he continued to vomit and had dry heaving. Because of this, he decided to come to the ED for further evaluation and management. He denies eating any strange foods. He does mention he had the chills. He says his abdominal pain is likely due to his frequent vomiting. He denies any diarrhea. Hospital Course Hospital Course 1. Nausea & vomiting: Rexolved - Supportive care - Given IV fluids overnight - Suspect food poisoning versus acute viral gastroenteritis 2. Lactic acidosis: Resolved - Likely due to his complaints of vomiting 3. Concern for bacteremia - Positive blood culture 1 out of 4, reviewed with Dr. Kern who states most likely a contaminant treated with IV vancomycin but no recommendations for antibiotics at discharge. Discharge: Patient had resolution of nausea and vomiting, able to tolerate oral intake of food and fluids. Lactic acid within normal limits at discharge. Discharges in stable condition to resume soft bland diet. Patient prescribed supportive medications Bentyl and Zofran. Patient is advised to follow-up with primary care provider in 1 to 2 days of discharge. All questions and concerns addressed to the patient prior to discharge. Physical Exam Narrative: General: No acute distress, appears stated age CVS: Regular rate and rhythm. No murmurs, rubs, gallops Pulmonary: No acute distress. Lungs clear to auscultation bilaterally Gastrointestinal: Abdomen is soft, full, no abdominal tenderness, bowel sounds x 4 WNL. Neurological: Alert and oriented x 4. Moves all extremities spontaneously Discharge Data Studies Completed and Pending Completed Studies During Hospitalization Category Date Time Status CT angio abdomen pelvis [id number] Stat Cat Scan 11/11/25 19:43 Completed CXRP [XR chest 1V portable [id number]] AM LABS Exams 11/13/25 06:00 Completed Pending at discharge Category Date Time Status Blood Culture Stat Lab 11/11/25 20:10 Results Radiology Impressions Abdomen/Pelvis CTA 11/11/25 19:43 IMPRESSION: 1. No areas of gross contrast extravasation to suggest an acute GI bleed at this time. 2. Mild abdominal aorta atherosclerosis without evidence of aneurysm or dissection. 3. Additional incidental and chronic findings as above. Chest X-Ray 11/13/25 06:00 Impression: Atherosclerosis. Laboratory Results WBC 11.13 10^3/uL (3.29-11.43) 11/12/25 04:07 RBC 4.88 10^6/uL (3.85-5.65) 11/12/25 04:07 Hgb 16.70 g/dL (11.27-16.99) 11/12/25 04:07 Hct 48.9 % (37-53) 11/12/25 04:07 MCV 100.2 fl (82-101) 11/12/25 04:07 MCH 34.2 pg (27-33) H 11/12/25 04:07 MCHC 34.2 g/dL (30-55) 11/12/25 04:07 RDW 12.6 % (12.1-15.1) 11/12/25 04:07 Plt Count 253 10^3/cmm (157-399) 11/12/25 04:07 MPV 8.9 fL (7.4-10.4) 11/12/25 04:07 Neut % (Auto) 81.8 % 11/12/25 04:07 Lymph % (Auto) 13.9 % 11/12/25 04:07 [place] % (Auto) 3.8 % 11/12/25 04:07 Eos % (Auto) 0.0 % 11/12/25 04:07 Baso % (Auto) 0.2 % 11/12/25 04:07 Neut # (Auto) 9.11 10^3/uL (1.8-7.7) H 11/12/25 04:07 Lymph # (Auto) 1.6 10^3/uL (0.8-4.8) 11/12/25 04:07 [place] # (Auto) 0.4 10^3/uL (0.2-0.9) 11/12/25 04:07 Eos # (Auto) 0.0 10^3/uL (0.0-0.8) 11/12/25 04:07 Baso # (Auto) 0.0 10^3/uL (0.0-0.1) 11/12/25 04:07 Nucleated RBC % (auto) 0 % 11/12/25 04:07 Nucleated RBCs # 0.0 /100WBC 11/12/25 04:07 Sodium 138 mmol/L (136-145) 11/12/25 04:07 Potassium 3.7 mmol/L (3.5-5.1) 11/12/25 04:07 Chloride 98 mmol/L (98-107) 11/12/25 04:07 Carbon Dioxide 24 mmol/L (22-29) 11/12/25 04:07 Anion Gap 19.7 (5-19) H 11/12/25 04:07 BUN 11 mg/dL (8-23) 11/12/25 04:07 Creatinine 1.0 mg/dL (0.7-1.2) 11/12/25 04:07 GFR Calculation Not Reportable 11/12/25 04:07 Glucose 158 mg/dL (65-115) H 11/12/25 04:07 Calculated Osmolality 289 mOsm/kg (285-295) 11/12/25 04:07 Lactic Acid 1.7 mmol/L (0.5-2.2) 11/12/25 04:07 Lactic Acid (Sepsis) 3.8 mmol/L (0.5-2.2) H 11/11/25 21:28 Calcium 9.0 mg/dL (8.5-10.5) 11/12/25 04:07 Total Bilirubin 1.2 mg/dL (0.15-1.2) 11/11/25 18:30 AST 81 U/L (0-40) H 11/11/25 18:30 ALT 53 U/L (0-41) H 11/11/25 18:30 Alkaline Phosphatase 130 U/L (40-130) 11/11/25 18:30 Troponin T Baseline 18 ng/L (0-15) H 11/11/25 18:30 Troponin T 60 Minute 15.83 ng/L (0-15) H 11/11/25 19:27 Delta Troponin T -2.17 ABS# (0-10) L 11/11/25 19:27 Troponin T Hi Sens 6Hr 15.28 ng/L (0-15) H 11/12/25 00:40 Troponin T Hi Sens 6Hr Delta -2.72 ng/L (0-12) L 11/12/25 00:40 Total Protein 7.8 g/dL (6.6-8.7) 11/11/25 18:30 Albumin 4.9 g/dL (3.5-5.2) 11/11/25 18:30 Globulin 2.9 g/dL (1.3-4.6) 11/11/25 18:30 Lipase 47 U/L (13-60) 11/11/25 18:30 Urine Color Yellow (Yellow) 11/11/25 21:11 Urine Appearance Clear (CLEAR) 11/11/25 21:11 Urine pH 6.5 (5-7) 11/11/25 21:11 Ur Specific [place] 1.017 (1.005-1.030) 11/11/25 21:11 Urine Protein Negative (Negative) 11/11/25 21:11 Urine Glucose (UA) Negative (Normal) 11/11/25 21:11 Urine Ketones 1+ (Negative) H 11/11/25 21:11 Urine Blood Negative (Negative) 11/11/25 21:11 Urine Nitrate Positive (Negative) A 11/11/25 21:11 Urine Bilirubin Negative (Negative) 11/11/25 21:11 Urine Urobilinogen 1.0 mg/dL (Negative) 11/11/25 21:11 Ur Leukocyte Esterase 1+ (Negative) A 11/11/25 21:11 Urine RBC 0-2 /hpf (0-2) 11/11/25 21:11 Urine WBC 6-10 /hpf (0-5) 11/11/25 21:11 Ur Squamous Epith Cells 0-5 /hpf (0-5) 11/11/25 21:11 Amorphous Sediment Not Reportable 11/11/25 21:11 Urine Bacteria None seen /hpf (NONE) 11/11/25 21:11 Hyaline Casts 0.40 /lpf 11/11/25 21:11 Nasal MRSA (PCR) Mrsa not detected (Negative) 11/12/25 17:00 Influenza A (PCR) Negative (Negative) 11/11/25 19:02 Influenza Type B (PCR) Negative (Negative) 11/11/25 19:02 RSV (PCR) Negative (Negative) 11/11/25 19:02 SARS-CoV-2 (PCR) Negative (Negative) 11/11/25 19:02 Vitals Last Vital Signs Temp 97.9 F 11/13/25 11:22 Pulse 71 11/13/25 11:22 Resp 15 11/13/25 11:22 BP 118/71 11/13/25 11:22 Pulse Ox 94 11/13/25 11:22 O2 Del Method Room Air 11/13/25 11:22 Discharge Plan Discharge Patient Disposition: Home Condition: Stable Prescriptions: New dicyclomine 10 mg capsule 10 mg PO TID Qty: 14 0RF ondansetron 8 mg tablet,disintegrating 8 mg PO Q8H PRN (Reason: nausea and vomiting) 5 Days Qty: 14 0RF Continued clopidogrel [Plavix] 75 mg tablet 75 mg PO ONCE pantoprazole [Protonix] 40 mg tablet,delayed release (DR/EC) 40 mg PO ONCE acetaminophen [Tylenol Extra Strength] 500 mg tablet 500 mg PO Q4H (DME) TLSO brace See Rx Instructions .Route .MEDSUPPLY Qty: 1 0RF Rx Instructions: lumbar spine Discontinued metronidazole 500 mg tablet 500 mg PO TID Qty: 30 0RF ondansetron HCl 4 mg tablet 4 mg PO Q6H PRN (Reason: nausea and vomiting) Qty: 20 0RF No Action metoprolol succinate 50 mg tablet extended release 24 hr 50 mg PO DAILY tamsulosin 0.4 mg capsule 0.8 mg PO BEDTIME ezetimibe 10 mg tablet 10 mg PO DAILY Men's 50 Plus Multivitamin 400-20-370 mcg Tablet 1 tab PO DAILY Discharge Order = DC NOW: Discharge Order (Routine); Ordered 11/13/25 Ordered By: Tamica Horvath Referrals: Elizabeth Del Rio MD [Primary Care Provider, Internal Medicine] - 11/20/25 1:30 pm Referral Note: appointment will be with judi Rodriguez Diet: Advance as tolerated Discharge Activity: Resume usual activity Patient Instructions: Dicyclomine (By mouth), Ondansetron (By mouth) (Eder Gaines Zuplenz), Urinary Tract Infection in Men (GEN), Opioid Safety, Patient Portal & Aric Instructions Discharge Attestations Time Spent in Discharge Care*: greater than 30 min Quality Metrics Clinical Quality Measures [ No reported AMI, CVA or VTE this stay] Coding Level of Care Code 45376 Diagnoses Bacteremia R78.81 Nausea & vomiting R11.2 Vomiting type: unspecified
[2025-11-13 14:20] VITALS: BP 118/71; PULSE 71; RESP 15; TEMP 36.6; O2SAT 94
== END 2025-11-13 14:15 | disposition home or self-care (01) | DRG 392 ==
LOC: ER 11-12 00:34 → ER IP 11-12 01:26 → MEDSURG 11-12 07:18 → ER IP 11-12 15:21
PROVIDERS: Admitting Provider Family Medicine; Emergency Provider Emergency Medicine; PCP Internal Medicine; Visit Provider Registered Nurse
DX: K52.9 Noninfective gastroenteritis and colitis, unspecified (principal); E87.20 Acidosis, unspecified; N13.39 Other hydronephrosis; A05.9 Bacterial foodborne intoxication, unspecified; I12.9 Hypertensive chronic kidney disease with stage 1 through stage 4 chronic kidney disease, or unspecified chronic kidney disease; N18.9 Chronic kidney disease, unspecified; J44.9 Chronic obstructive pulmonary disease, unspecified; R10.9 Unspecified abdominal pain; N31.9 Neuromuscular dysfunction of bladder, unspecified; E78.00 Pure hypercholesterolemia, unspecified; R33.9 Retention of urine, unspecified; Z96.643 Presence of artificial hip joint, bilateral; F17.290 Nicotine dependence, other tobacco product, uncomplicated; E86.0 Dehydration; Z79.02 Long term (current) use of antithrombotics/antiplatelets; Z82.49 Family history of ischemic heart disease and other diseases of the circulatory system
CPT/HCPCS: 36415; 71045; 74174; 80048; 80053; 81001; 83605; 83690; 84484; 85025; 87040; 87077; 87150; 87186; 87205; 87637; 93005; 96361; 96372; 96374; 96375; 99285; G0378; J0696; J0780; J1650; J2270; J2405; J3372; J3373; J3490; J7030; J7050; J9999